=== PATIENT | male | born 1955 | race Caucasian/White ===

== ENCOUNTER 2018-04-18 15:43 | Outpatient (REF) | payer OTHER, SELFPAY ==
[2018-04-18 19:07] LABS: Bilirubin Negative (Negative); Blood Trace-intact (Negative); Clarity Clear; Glucose Negative (Negative); Ketones Negative (Negative); Leukocyte Esterase Negative (Negative); Nitrite Negative (Negative); Specific Gravity 1.025 (1.005-1.025); Urobilinogen 0.2 EU/dL (Up TO 0.2); pH 5.5 (5-8)
[2018-04-18 19:27] LABS: Bacteria Rare HPF (Negative); C & S Indicated? No; Casts Negative LPF (Negative); Crystals Negative HPF (Negative); Epithelial Cells Negative HPF (Negative); Mucus Negative (Negative); Other Cells Negative (Negative); RBC 0-2 (0-2); WBC Negative HPF (0-5)
== END 2018-04-18 16:03 ==
LOC: LBN 15:43
PROVIDERS: PCP Emergency Medicine; Visit Provider Emergency Medicine
DX: R31.9 Hematuria, unspecified (principal)
CPT/HCPCS: 81003; 81015

== ENCOUNTER 2018-04-18 15:48 | Outpatient (CLI) | payer OTHER, SELFPAY ==
--- NOTE | 2018-04-18 15:30 | DI.RAD_ITS ---
SYMPTOMS/DIAGNOSIS: SHORTNESS OF BREATH, R06.02 PA AND LATERAL CHEST: The heart is normal in size. The lungs are clear. The mediastinal structures and pleura appear intact. CONCLUSION: Normal chest.
== END 2018-04-18 16:08 ==
PROVIDERS: PCP Emergency Medicine; Visit Provider Emergency Medicine
DX: R06.02 Shortness of breath (principal)
CPT/HCPCS: 71046

== ENCOUNTER 2018-05-26 09:23 | Outpatient (CLI) | payer OTHER, SELFPAY ==
[2018-05-26 11:50] LABS: D-Dimer 235 ng/mlFEU (<500)
[2018-05-26 12:01] LABS: Abs Immature Grans 0.01 k/cumm (0.0-0.09); Absolute Basophil Count 0.02 k/cumm (0.0-0.2); Absolute Lymphocyte Count 1.77 k/cumm (1.2-3.4); Absolute Monocyte Count 0.63 k/cumm (0.11-0.7); Absolute Neutrophil Count 3.99 k/cumm (1.2-6.7); Basophils % 0.3; Eosinophils % 1.5; HCT 48.1 % (40.0-50.0); Immature Grans % 0.2; Lymphocytes % 27.1; Mean Corp. HGB Concentration 33.3 g/dL (32.0-36.0); Mean Corpuscular Hemoglobin 30.1 pg (27.0-33.0); Mean Corpuscular Volume 90.4 fL (80-95); Mean Platelet Volume 9.6 fL (8.0-11.0); Monocytes % 9.7; Neutrophils % 61.2; Platelet Count 329 x1000/uL (130-400); RBC 5.32 m/cumm (4.50-6.00); RBC Distribution Width 12.1 % (11.8-14.1); White Blood Cell Count 6.52 k/cumm (4.4-10.8)
[2018-05-26 12:44] LABS: ESR 25 MM/HR (1-20)
[2018-05-26 13:04] LABS: Cholesterol 289 mg/dL (50-200); HDL Cholesterol 46 mg/dL (40-60); LDL CHOLESTEROL 210 mg/dL (<100); Triglyceride 162 mg/dL (30-150)
== END 2018-05-26 09:43 ==
PROVIDERS: PCP Emergency Medicine; Visit Provider Emergency Medicine
DX: Z00.00 Encounter for general adult medical examination without abnormal findings (principal); R05 Cough; Z13.220 Encounter for screening for lipoid disorders
CPT/HCPCS: 36415; 80061; 83721; 85652; 85025; 85379; 86140

== ENCOUNTER 2018-07-11 02:08 | Outpatient (CLI) | payer OTHER, SELFPAY ==
[2018-07-11 11:05] LABS: HCT 43.2 % (40.0-50.0); HGB 14.3 g/dL (13.5-17.5); Mean Corp. HGB Concentration 33.1 g/dL (32.0-36.0); Mean Corpuscular Hemoglobin 29.9 pg (27.0-33.0); Mean Corpuscular Volume 90.2 fL (80-95); Mean Platelet Volume 9.8 fL (8.0-11.0); Platelet Count 325 x1000/uL (130-400); RBC 4.79 m/cumm (4.50-6.00); White Blood Cell Count 6.36 k/cumm (4.4-10.8)
[2018-07-11 11:16] LABS: ALT 29 U/L (12-78); AST 18 U/L (15-37); Alkaline Phosphatase 88 U/L (46-116); Anion Gap 10.6 mmol/L (3-11); BUN 25 mg/dL (7-18); Bilirubin, Total 0.4 mg/dL (0.2-1.0); C-Reactive Protein 0.16 mg/dL (0.0-0.3); CO2 26.4 mmol/L (21.0-32.0); CREATININE 1.16 mg/dL (0.70-1.30); Calcium 9.1 mg/dL (8.5-10.1); Chloride 100 mmol/L (98-107); Glucose 105 mg/dL (70-100); Sodium 137 mmol/L (136-145)
[2018-07-11 12:22] LABS: ESR 18 MM/HR (1-20)
[2018-07-12 13:24] LABS: Lyme Ab w Rflx to Lyme Confirm Negative
== END 2018-07-11 02:28 ==
PROVIDERS: PCP Emergency Medicine; Visit Provider Emergency Medicine
DX: R06.02 Shortness of breath (principal); M25.50 Pain in unspecified joint
CPT/HCPCS: 36415; 80053; 85027; 85652; 86140; 86618

== ENCOUNTER 2018-07-15 02:56 | Outpatient (CLI) | payer OTHER, SELFPAY ==
--- NOTE | 2018-07-15 | PFT_ITS ---
PULMONARY FUNCTION TEST REPORT Patient - Nahun Quispe 57 DATE OF SERVICE July 15, 2018 REQUESTING PROVIDER Sandeep Cordoba D.O. INTERPRETATION OF STUDY Spirometry shows mild obstructive airways disease with no significant bronchodilator response. LUNG VOLUMES - Lung volumes show no evidence of restriction. DIFFUSION CAPACITY- Elevated. AIRWAY RESISTANCE Normal. IMPRESSION Mild obstructive airways disease with no significant bronchodilator response. This is associated with elevated diffusion capacity, this constellation of finding can be seen in asthma. If the diagnosis of asthma is in question proceeding with Methacholine challenge testing may prove to be useful. Marlyn Galindo M.D. Bianca DD 07/16/2018 DT - 07/16/2018
[2018-07-15] MEDS: Inhaler, Assist Device 1 EACH MC (08:57)
[2018-07-15] MEDS: Albuterol HFA 18 GM 200 PUFF INH IH (08:58)
== END 2018-07-15 03:16 ==
PROVIDERS: PCP Emergency Medicine; Visit Provider Emergency Medicine
DX: R06.02 Shortness of breath (principal); Z77.9 Other contact with and (suspected) exposures hazardous to health
CPT/HCPCS: 94060; 94150; 94726; 94729

== ENCOUNTER 2018-11-27 17:19 | Observation (INO) | payer OTHER, SELFPAY ==
[2018-11-27] VITALS (16 sets, daily range): BP systolic 115–146; BP diastolic 65–85; PULSE 79–102; RESP 12–26; TEMP 36.5–37; O2SAT 94–99
--- NOTE | 2018-11-27 17:31 | DI.RAD_ITS ---
EXAM: XR CHEST 2V PA LATERAL INDICATION: fall, pain right ribs. COMPARISON: XR CHEST 2V PA LATERAL from 04/18/2018 TECHNIQUE: 2D digital imaging was performed. FINDINGS: The lungs are well expanded and free of infiltrate. There is no evidence of a pleural effusion. The cardiovascular structures appear intact. Compared with the previous images again noted is a small (2 mm) radiodensity in the left anterior chest.
--- NOTE | 2018-11-27 17:31 | DI.CT_ITS ---
EXAM: CT HEAD WO CLINICAL HISTORY: seizure activity. TECHNIQUE: A noncontrast cranial CT was performed according to the usual protocol. COMPARISON: No exams were available for comparison FINDINGS: There is no evidence of an intra or extra-axial hemorrhage. Age-appropriate atrophic changes are demo nstrated. There is evidence of small-vessel disease. The pearce-white matter differentiation is well m aintained. There is no evidence of a territorial infarct. The ventricles are unremarkable. There is no skull fracture. The paranasal sinuses are well maintained. There is no evidence of a mastoid effu aarti. Note is made of a 3 x 0.5 cm fatty density on the right frontal scalp which would be consisten t with a lipoma. IMPRESSION: No acute intracranial abnormality is demonstrated.
--- NOTE | 2018-11-27 17:33 | ED.GENADUL_ITS ---
Discharge Plan Disposition Patient Disposition: [facility] INPATIENT Condition: Serious Discharge Details Chief Complaint: Dizzy/Sync Clinical Impression: CHRISTIN (acute kidney injury), Syncope, Observed seizure-like activity Admit Date/Time: 11/27/18 19:51 Admit Provider: Danny Chavez Attending Provider: Danny Chavez Primary Care Provider: Ebony Celis ED Provider: Connor Linares Medical Decision Making Medical Records Medical records narrative: 17:35 --63-year-old male with history of hypertension here after syncopal episode that occurred just after standing having just smoked marijuana and worked all day without maintaining adequate hydration. He did have seizure-like activity during the episode. Patient has dry mucous membranes and is thirsty. I suspect he is dehydrated. Likely orthostatic episode. Consider seizure versus arrhythmia. I will give IV fluid bolus. ECG was reviewed and interpreted by me: Sinus rhythm 88 bpm, normal axis, no STEMI, nondiagnostic. --CT head was interpreted by radiology: No acute intracranial process. 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 No underlying bony abnormalities. Chest x-ray was reviewed and interpreted by radiology: No acute thoracic process. 2 mm radiodense foreign body in the left anterior upper chest soft tissues, unchanged compared to prior chest x-ray. Labs were reviewed and patient has significant elevation of creatinine from prior baseline. Suspect prerenal as a result of hypovolemia. Patient has received 2 L of crystalloid. Plan to hospitalize for overnight for IV fluids and observation on monitor with plan for repeat labs. I called and spoke with Dr. Gipson, on-call hospitalist, who will admit the patient. He request bridging orders be placed to the floor. HPI General Mode of arrival: EMS . Date/Time Provider Initiated Documentation: 11/27/18 17:20 . Limitations to Documentation: no limitations . Information obtained by: patient and EMS . HPI Narrative: 63-year-old male with history of hypertension, presents after syncopal episode. Patient notes he was working hard today outside, did not consume much water, was resting and smoking marijuana and when he stood up he suddenly felt dizzy and lost consciousness. Symptoms were severe. Now resolved. He was assisted by a friend and some to the ground. He did have some full body shaking, seizure-like activity for 30 seconds. He did not strike his head. He denies headache. No chest pain or shortness of breath. Currently his only complaint is that he feels dehydrated. Patient notes he has had at least 2 similar episodes in the past. Last episode occurred 1 to 2 years ago. He did not seek medical care for these prior episodes. Related Data Home Medications Medication Instructions Recorded Confirmed losartan 50 mg-hydrochlorothiazide 1 tab PO DAILY #90 tab 07/09/18 11/27/18 12.5 mg tablet rosuvastatin 10 mg tablet 10 mg PO DAILY #90 tab 07/09/18 11/27/18 budesonide-formoterol HFA 80 2 puff IH BID #10.2 gm 09/10/18 11/27/18 mcg-4.5 mcg/actuation aerosol inhaler Previous Rx's Medication Instructions Recorded losartan 50 mg-hydrochlorothiazide 1 tab PO DAILY #90 tab 07/09/18 12.5 mg tablet rosuvastatin 10 mg tablet 10 mg PO DAILY #90 tab 07/09/18 budesonide-formoterol HFA 80 2 puff IH BID #10.2 gm 09/10/18 mcg-4.5 mcg/actuation aerosol inhaler Allergies Allergy/AdvReac Type Severity Reaction Status Date / Time No Known Allergies Allergy Verified 11/27/18 17:27 General Stated Complaint: Dizzy/Sync ALFONZO: 2 Review of Systems Review of Systems ROS Unobtainable: All systems reviewed & are unremarkable except as noted in HPI and below Constitutional Constitutional: Denies fever(s) Cardiovascular Cardiovascular: Denies chest pain and Reports syncope Neurologic Neurologic: Reports syncope [facility] Medical History Depression HTN (hypertension) Restless leg syndrome Surgical History Colonoscopy - IV Sedation (10/19/16) Family History Mother No problems noted. Father No problems noted. Sister No problems noted. Sister No problems noted. Sister No problems noted. Sister No problems noted. Brother No problems noted. Brother No problems noted. Brother No problems noted. Brother No problems noted. Brother No problems noted. Son No problems noted. Son No problems noted. Daughter No problems noted. Daughter No problems noted. Social History Smoking/Tobacco Use Status: Never Alcohol Intake: former Drug use: Occasionally Substance use type: marijuana Details: quit drinking 31 yrs ago Do you feel safe at home: Yes Do you feel safe in your relationship?: Yes Exam Const General: cooperative and no acute distress HENMT Head: normocephalic and atraumatic Mouth: moist mucous membranes Eyes Conjunctivae: normal conjunctivae Sclera: normal sclerae EOM: EOM intact bilaterally Neck Neck: trachea midline and supple Resp Auscultation: clear to auscultation bilaterally, no rales, no rhonchi and no wheezes Cardio Jugular venous pressure: no JVD Rate: regular rate and not tachycardic Rhythm: regular rhythm GI Palpation: soft, not firm, no guarding, no masses, not rigid and nontender Skin General skin exam: no rashes or lesions noted Neuro General: alert, awake, oriented x3 and tone normal Cranial Nerves: CN's II-XI intact bilaterally Cognition: normal cognition Speech: speech normal Motor: muscle tone normal throughout and strength 5/5 throughout Sensory Exam: no sensory deficits noted Extrem General: no edema Psych Appearance: grossly normal Mental Status: mental status grossly normal Speech and Movement: speech and movement normal Course Vital Signs Vital signs: Vital Signs Temperature 36.5 C 11/27/18 17:20 Pulse 93 H 11/27/18 17:20 Respiratory Rate 16 11/27/18 17:20 Blood Pressure 119/85 11/27/18 17:20 Pulse Oximetry 94 L 11/27/18 17:20 Temperature 36.5 C 11/27/18 17:20 Temperature Source Temporal Artery Scan 11/27/18 17:20 Pulse 93 H 11/27/18 17:20 Respiratory Rate 16 11/27/18 17:20 Blood Pressure 119/85 11/27/18 17:20 Blood Pressure Position Supine 11/27/18 17:20 Pulse Oximetry 94 L 11/27/18 17:20 Oxygen Delivery Method Room Air 11/27/18 17:20 Oxygen Flow Rate 0 11/27/18 17:20 Comment 11/27/18 17:20
[2018-11-27] MEDS: Normal Saline 1,000 ML 1000 ML IV (17:41)
[2018-11-27 17:52] LABS: Abs Immature Grans 0.02 k/cumm (0.0-0.09); Absolute Basophil Count 0.03 k/cumm (0.0-0.2); Absolute Eosinophil Count 0.13 k/cumm (0.0-0.7); Absolute Lymphocyte Count 2.02 k/cumm (1.2-3.4); Absolute Neutrophil Count 7.15 k/cumm (1.2-6.7); Basophils % 0.3; Eosinophils % 1.3; HCT 36.9 % (40.0-50.0); HGB 12.3 g/dL (13.5-17.5); Immature Grans % 0.2; Lymphocytes % 19.7; Mean Corp. HGB Concentration 33.3 g/dL (32.0-36.0); Mean Corpuscular Hemoglobin 30.5 pg (27.0-33.0); Mean Corpuscular Volume 91.6 fL (80-95); Mean Platelet Volume 9.5 fL (8.0-11.0); Monocytes % 8.8; Neutrophils % 69.7; Platelet Count 317 x1000/uL (130-400); RBC 4.03 m/cumm (4.50-6.00); RBC Distribution Width 12.2 % (11.8-14.1); White Blood Cell Count 10.25 k/cumm (4.4-10.8)
[2018-11-27 18:03] LABS: ALT 58 U/L (16-63); AST 39 U/L (15-37); Alkaline Phosphatase 68 U/L (46-116); Anion Gap 9.8 mmol/L (3-11); BUN 32 mg/dL (7-18); Bilirubin, Total 0.6 mg/dL (0.2-1.0); CO2 25.2 mmol/L (21.0-32.0); Calcium 8.7 mg/dL (8.5-10.1); Chloride 108 mmol/L (98-107); Glucose 100 mg/dL (70-100); Magnesium 1.8 mg/dL (1.8-2.4); Potassium 4.1 mmol/L (3.5-5.1); Sodium 143 mmol/L (136-145)
--- NOTE | 2018-11-27 18:19 | DI.VRAD_ITS ---
PROCEDURE INFORMATION: Exam: XR Chest, 2 Views Exam date and time: 11/27/2018 5:33 PM Clinical history: 63 years old, male; Other: Syncope TECHNIQUE: Imaging protocol: XR of the chest Views: 2 views. COMPARISON: CR XR CHEST 2V PA LATERAL 04/18/2018 3:33 PM FINDINGS: Lungs: Normal pulmonary expansion. Pulmonary vasculature grossly normal. No infiltrates. Pleural space: No pleural effusion. No pneumothorax. Heart/Mediastinum: Heart size normal. No tracheal/mediastinal shift. Vasculature: Mild aortic ectasia and tortuosity. Bones/joints: No acute osseous abnormalities are identified. Soft tissues: 2 mm radiodense foreign body in the anterior upper left chest soft tissues, unchanged from 04/18/2018. IMPRESSION: 1. No acute thoracic process. 2. 2 mm radiodense foreign body in the left anterior upper chest soft tissues, unchanged. Dictated and Authenticated by: Logan Pugh MD. Ordering:SERA Ryan MD
--- NOTE | 2018-11-27 18:22 | DI.VRAD_ITS ---
PROCEDURE INFORMATION: Exam: CT Head Without Contrast Exam date and time: 11/27/2018 5:33 PM Clinical history: 63 years old, male; Syncope and collapse TECHNIQUE: Imaging protocol: Computed tomography of the head without contrast. COMPARISON: No relevant prior studies available. FINDINGS: Brain: Mild generalized atrophy with minimal periventricular white matter ischemic changes consistent with the patient's advanced age. No extra-axial fluid collections. No evidence of acute intracranial hemorrhage. Prasad-white differentiation is well maintained. No evidence of acute or subacute intracranial ischemia/infarct. No intracranial mass lesions. Midline shift: No midline shift or herniation. Ventricles: Ventricles normal. Bones/joints: The calvarium and visualized facial bones are intact. Sinuses: Visualized paranasal sinuses are clear. Mastoid air cells: Visualized mastoid air cells are clear. Orbits: Orbital contents demonstrate no evidence of acute abnormality. Soft tissues: 3 x 0.5 centimeter fat density lesion along the right frontal scalp on series 2 image 33 consistent with lipoma, measuring -91 Hounsfield units average density. No underlying bony abnormality. Vasculature: Mild atherosclerotic calcific plaque is identified in the visualized distal ICA segments . No asymmetric vascular hyperdensities are identified. Other findings: The IACs are grossly normal. The sella is grossly normal. IMPRESSION: 1. No acute intracranial process. 2. 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 No underlying bony abnormalities. Dictated and Authenticated by: Logan Pugh MD. Ordering:SERA Ryan MD
[2018-11-27 19:10] LABS: Troponin I < 0.05 ng/mL (0.00-0.06)
[2018-11-27] MEDS: Lactated Ringers 1,000 ML 1000 ML IV (19:37)
--- NOTE | 2018-11-27 20:53 | W.PM.HP.N ---
Date of service: 11/27/18 Time of Service: 20:53 Assessment and Plan Assessment and plan (1) Syncope: Status: Chronic Assessment and plan: monitor overnight on telemetry to r/o arrhythmia as a cause for his syncope although I think more likely he was just dehydrated and hypotensive/orthostatic. Will also continue to cycle his troponin levels to r/o ACS although no antecedent CP and normal EKG. CT of head was negative for CVA/tumor. Also will check EEG to r/o primary seizure disorder although I think the seizure was more likely a result of his orthostasis and hypotension associated w/ dehydration. Qualifiers: Syncope type: unspecified Qualified Code(s): R55 - Syncope and collapse (2) Acute kidney injury (nontraumatic): Status: Acute Assessment and plan: continue iv fluid hydration overnight and repeat his BMP in the a.m. Will also obtain UA (3) Dehydration: Status: Acute Assessment and plan: cont. iv fluid hydration and monitor urine output and repeat BMP in the a.m. (4) Seizure: Status: Acute Assessment and plan: monitor for any further seizures, proceed w/ EEG in the a.m. Will obtain MRI to rule out any structural causes for seizure however I think this is all due to very low bp associated w/ dehydration (5) Anemia: Status: Chronic Assessment and plan: hemoglobin and hematocrit are slightly low which in the setting of dehydration and prerenal azotemia is unusual. He denies any hx of PUD nor any symptoms of melena nor hematochezia nor abdominal pains. I will repeat his CBC in the a.m. along w/ iron studies and also check his stool for occult blood. If he is indeed anemic and this is not a false reading i.e. drawn labs from above an iv site; then this would explain syncope in setting of dehydration and anemia. 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 He had just gotten done on a roof and was having a drink of water and a smoke of marijiuana when he felt lightheaded and before he could sit down he passed out. Over a 20 minute period he reportedly passed out 3 more times before EMS arrived. His syncope was accompanied by seizure like activity of full body jerking according to his coworkers who reported this to EMS. The patient states that this has happened one other time about 2 yrs ago again associated w/ working in the heat and not drinking enough water on a job site. He denies any seizures or syncope in between. He denies any headaches nor dyspnea nor chest pains other than some right sided chest wall tenderness from hitting his truck on the way down to the ground when he passed out. Evaluation in the ER by Dr. Linares included CT of brain w/out contrast (negative), EKG (NSR w/out ischemia), troponin I level that was normal at <0.05, CMP demonstrating prerenal azotemia (BUN 32, creatinine 2.50; last levels were 25 and 1.16 in 07/11/2018), CBC that demonstrated a mild anemia (Hb 12.3 gm, HCT 36.9% with normal indices and RDW and normal WBC 10,250 and platelets of 317,000) urine toxicology screen that is pending. CXR that is negative for acute cardiopulmonary process. Treatment in the ER included 2 L of iv fluids (1 L of LR and 1 L of NS). He is now admitted for overnight iv fluid rehydration, monitoring for arrhythmias or further seizures and for repeat labs to assess return of his renal function. I have also scheduled inpatient EEG and echo for completion of his syncope and seizure workup. Review of Systems Review of Systems ROS Unobtainable: All systems reviewed & are unremarkable except as noted in HPI and below Constitutional Constitutional: Reports as per HPI, Denies chills and Denies fever(s) Eyes Eyes: Reports system reviewed and no additional complaints, except as docu Cardiovascular Cardiovascular: Reports chest pain (right sided chest wall pain since his syncope; no antecedent CP), Denies chest pain with activity, Reports syncope, Denies pedal edema, Denies leg edema, Reports lightheadedness, Denies palpitations and Denies dyspnea on exertion Respiratory Respiratory: Denies chest congestion and Denies dyspnea on exertion Gastrointestinal Gastrointestinal: Denies abdominal pain, Denies melena, Denies hematochezia, Denies diarrhea and Denies nausea Genitourinary Genitourinary: Reports system reviewed and no additional complaints, except as docu Musculoskeletal Musculoskeletal: Reports system reviewed and no additional complaints, except as docu Integumentary/Breasts Skin/Breast: Reports system reviewed and no additional complaints, except as docu Neurologic Neurologic: Reports syncope and Reports seizure-like activity Endocrine Endocrine: Reports system reviewed and no additional complaints, except as docu and Denies palpitations Hematologic/Lymphatic Hematologic/Lymphatic: Reports system reviewed and no additional complaints, except as docu Allergic/Immunologic Allergic/Immunologic: Reports system reviewed and no additional complaints, except as docu PFSH Medical History Depression HTN (hypertension) Restless leg syndrome Surgical History Colonoscopy - IV Sedation (10/19/16) Family History Mother No problems noted. Father No problems noted. Sister No problems noted. Sister No problems noted. Sister No problems noted. Sister No problems noted. Brother No problems noted. Brother No problems noted. Brother No problems noted. Brother No problems noted. Brother No problems noted. Son No problems noted. Son No problems noted. Daughter No problems noted. Daughter No problems noted. Social History Smoking/Tobacco Use Status: Never Alcohol Intake: former Drug use: Occasionally Substance use type: marijuana Details: quit drinking 31 yrs ago Do you feel safe at home: Yes Do you feel safe in your relationship?: Yes Meds Home Medications and Allergies Home Medications Medication Instructions Recorded Confirmed Type losartan 50 mg-hydrochlorothiazide 1 tab PO DAILY #90 tab 07/09/18 11/27/18 Rx 12.5 mg tablet rosuvastatin 10 mg tablet 10 mg PO DAILY #90 tab 07/09/18 11/27/18 Rx budesonide-formoterol HFA 80 2 puff IH BID #10.2 gm 09/10/18 11/27/18 Rx mcg-4.5 mcg/actuation aerosol inhaler Allergies Allergy/AdvReac Type Severity Reaction Status Date / Time No Known Allergies Allergy Verified 11/27/18 17:27 Exam Const General: cooperative, healthy appearing, comfortable and no acute distress Nutritional Appearance: overweight Orientation: alert, awake and oriented x3 Chest Chest: normal inspection of the chest and localized rib tenderness with anteroposterior compression right anterior-axillary line Resp Effort & Inspection: normal respiratory effort and able to speak in complete sentences Auscultation: clear to auscultation bilaterally Cardio Jugular venous pressure: no JVD Palpation: normal PMI Rate: regular rate Rhythm: regular rhythm Heart Sounds: S1 normal, S2 normal and normal, physiologic split S2 Pulses: normal peripheral pulses GI Inspection: normal to inspection and obesity Palpation: soft and no hepatosplenomegaly Percussion: normal to percussion Auscultation: normal bowel sounds Rectal Exam: deferred Back/Spine/Pelvis Back: no CVA tenderness Cervical Spine: normal cervical lordosis Thoracic/Lumbar Spine: thoracic and lumbar spine normal to inspection Skin General skin exam: no rashes or lesions noted Neuro General: alert, awake, oriented x3, moves all extremities and no focal motor deficits Extrem General: normal to inspection, full ROM, normal capillary refill, no joint enlargement, no clubbing, cyanosis or edema, no pedal edema and no calf tenderness Psych Appearance: grossly normal Mental Status: mental status grossly normal Speech and Movement: speech and movement normal Mood: congruent mood Affect: normal affect Attitude: cooperative Thought Process: normal Thought Content: normal Insight: insight good Judgment: judgment good Results Imaging Chest x-ray: report reviewed Imaging Studies: PROCEDURE INFORMATION: Exam: CT Head Without Contrast Exam date and time: 11/27/2018 5:33 PM Clinical history: 63 years old, male; Syncope and collapse TECHNIQUE: Imaging protocol: Computed tomography of the head without contrast. COMPARISON: No relevant prior studies available. FINDINGS: Brain: Mild generalized atrophy with minimal periventricular white matter ischemic changes consistent with the patient's advanced age. No extra-axial fluid collections. No evidence of acute intracranial hemorrhage. Prasad-white differentiation is well maintained. No evidence of acute or subacute intracranial ischemia/infarct. No intracranial mass lesions. Midline shift: No midline shift or herniation. Ventricles: Ventricles normal. Bones/joints: The calvarium and visualized facial bones are intact. Sinuses: Visualized paranasal sinuses are clear. Mastoid air cells: Visualized mastoid air cells are clear. Orbits: Orbital contents demonstrate no evidence of acute abnormality. Soft tissues: 3 x 0.5 centimeter fat density lesion along the right frontal scalp on series 2 image 33 consistent with lipoma, measuring -91 Hounsfield units average density. No underlying bony abnormality. Vasculature: Mild atherosclerotic calcific plaque is identified in the visualized distal ICA segments . No asymmetric vascular hyperdensities are identified. Other findings: The IACs are grossly normal. The sella is grossly normal. IMPRESSION: 1. No acute intracranial process. 2. 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 No underlying bony abnormalities. Dictated and Authenticated by: Logan Pugh MD. Labs Result diagrams: 11/28/18 07:15 11/28/18 07:15 Labs: Laboratory Results - last 24 hr 11/27/18 11/27/18 11/27/18 17:25 17:25 18:48 WBC 10.25 RBC 4.03 L Hgb 12.3 L Hct 36.9 L MCV 91.6 MCH 30.5 MCHC 33.3 RDW 12.2 Plt Count 317 MPV 9.5 Immature Gran % 0.2 Neutrophils % 69.7 Lymphocytes % 19.7 Monocytes % 8.8 Eosinophils % 1.3 Basophils % 0.3 Absolute Neutrophils 7.15 H Absolute Lymphocytes 2.02 Absolute Monocytes 0.90 H Absolute Eosinophils 0.13 Absolute Basophils 0.03 Sodium 143 Potassium 4.1 Chloride 108 H Carbon Dioxide 25.2 Anion Gap 9.8 BUN 32 H Creatinine 2.50 H Estimated GFR/1.73 m2 26.30 Glucose 100 Calcium 8.7 Magnesium 1.8 Total Bilirubin 0.6 AST 39 H ALT 58 Alkaline Phosphatase 68 Troponin I < 0.05 Total Protein 7.0 Albumin 4.0 Last Vital Signs Temp 37.0 C 11/27/18 18:25 Pulse 91 H 11/27/18 18:46 Resp 12 11/27/18 18:46 BP 128/77 11/27/18 18:46 Pulse Ox 97 11/27/18 18:46
[2018-11-27] MEDS: Normal Saline 1,000 ML 150 ML IV (21:11)
[2018-11-27] MEDS: Normal Saline Flush 10 ML SYR IVP (21:16)
[2018-11-27] MEDS: Enoxaparin 30 MG/0.3 ML SYR SC (21:45)
[2018-11-27 22:07] LABS: *AMPHETAMINES SCREEN URINE Negative (Negative); *BARBITURATES SCREEN URINE Negative (Negative); *BENZODIAZEPINES SCREEN URINE Negative (Negative); Cannabinoids THC POSITIVE (Negative); Cocaine Screen,Urine Negative (Negative); METHADONE URINE SCREEN Negative (Negative); OPIATES URINE SCREEN Negative (Negative)
[2018-11-27 22:08] LABS: Tricyclic Antidepressants Negative (Negative)
[2018-11-27 22:35] LABS: Troponin I < 0.05 ng/mL (0.00-0.06)
[2018-11-28] VITALS (9 sets, daily range): BP systolic 108–138; BP diastolic 64–82; PULSE 58–75; RESP 16–18; TEMP 35.7–37; O2SAT 95–98
[2018-11-28] MEDS: Normal Saline 1,000 ML 150 ML IV ×3 (04:04→20:15)
[2018-11-28 07:24] LABS: Abs Immature Grans 0.01 k/cumm (0.0-0.09); Absolute Basophil Count 0.02 k/cumm (0.0-0.2); Absolute Eosinophil Count 0.13 k/cumm (0.0-0.7); Absolute Lymphocyte Count 1.27 k/cumm (1.2-3.4); Absolute Monocyte Count 0.61 k/cumm (0.11-0.7); Absolute Neutrophil Count 4.12 k/cumm (1.2-6.7); Basophils % 0.3; Eosinophils % 2.1; HCT 35.5 % (40.0-50.0); HGB 11.8 g/dL (13.5-17.5); Immature Grans % 0.2; Lymphocytes % 20.6; Mean Corp. HGB Concentration 33.2 g/dL (32.0-36.0); Mean Corpuscular Hemoglobin 30.6 pg (27.0-33.0); Mean Platelet Volume 9.3 fL (8.0-11.0); Monocytes % 9.9; Neutrophils % 66.9; Platelet Count 221 x1000/uL (130-400); RBC 3.86 m/cumm (4.50-6.00); RBC Distribution Width 12.2 % (11.8-14.1); White Blood Cell Count 6.16 k/cumm (4.4-10.8)
[2018-11-28 08:03] LABS: BUN 25 mg/dL (7-18); CREATININE 1.44 mg/dL (0.70-1.30); Calcium 8.2 mg/dL (8.5-10.1); Chloride 109 mmol/L (98-107); Estimated GFR 49.71 (mL/min/1.73m2); Ferritin 318 ng/mL (8-388); Folate 9.1 ng/mL (8.6-20.0); Glucose 93 mg/dL (70-100); Potassium 3.6 mmol/L (3.5-5.1); Sodium 142 mmol/L (136-145); Vitamin B12 244 pg/mL (193-986)
[2018-11-28 08:07] LABS: Troponin I < 0.05 ng/mL (0.00-0.06)
[2018-11-28 08:30] LABS: Iron 45 ug/dL (50-175); Total Iron Binding Capacity 230 ug/dL (250-450); Transferrin Sat 20 % (20-55)
[2018-11-28] MEDS: Budesonide/Formoterol 80/4.5 6.9 GM 60 PUFF INH IH ×2 (09:54→20:18)
--- NOTE | 2018-11-28 13:20 | DI.MRI_ITS ---
EXAM: MR BRAIN WO CLINICAL HISTORY: syncope, seizure. TECHNIQUE: Multiplanar multisequence MRI was performed. COMPARISON: No exams were available for comparison FINDINGS: MR examination of the brain was performed according to the usual protocol with additional coronal T2 weighted imaging. There is mild generalized cerebral atrophy. No signal abnormality identified in t he brain. The orbital and temporal bone structures appear intact. There is normal flow void in the [place] vasculature. The pituitary appears intact. No abnormal signal identified in the te mporal/hippocampal region. Diffusion weighted imaging shows no evidence of infarction. Susceptibili ty weighted imaging shows no evidence of intracranial hemorrhage. IMPRESSION: Negative brain MRI
[2018-11-28 13:56] LABS: Bilirubin Negative (Negative); Blood Negative (Negative); Clarity Clear (Clear); Glucose Negative (Negative); Ketones Negative (Negative); Leukocyte Esterase Negative (Negative); Nitrite Negative (Negative); Specific Gravity 1.015 (1.005-1.025); Urobilinogen 0.2 EU/dL (Up TO 0.2)
--- NOTE | 2018-11-28 14:56 | CHAPLAIN ---
Nahun was resting in bed and has a visitor with him. I introduced myself, explained my role and offered support. Nahun was friendly and greeted me pleasantly but did not seem interested in further conversation.
--- NOTE | 2018-11-28 15:33 | W.PM.PROGNOT ---
Date of Service Date of service: 11/28/18 Time of Service: 15:34 Assessment and Plan Assessment and plan (1) Syncope: Start date: 11/28/18 Start time: 15:43 Status: Chronic Assessment and plan: Unlikely seizure due to length in history. Last episode was 2 years ago. Consider dehydration source of syncope in working male on hydroclorithiazide not drinking water causing CHRISTIN. With carotid stenosis of 50%. Troponin levels negative. EKG normal. Will have event monitor on Discharge to r/o abnormal rythm. Qualifiers: Syncope type: unspecified Qualified Code(s): R55 - Syncope and collapse (2) Acute kidney injury (nontraumatic): Start date: 11/28/18 Start time: 15:47 Status: Acute Assessment and plan: Improved significantly. Will continue hydration overnight and recheck bmp in am. (3) Dehydration: Start date: 11/28/18 Start time: 15:48 Status: Acute Assessment and plan: Improved cont. iv fluid hydration (4) Seizure: Start date: 11/28/18 Start time: 15:48 Status: Acute Assessment and plan: Unlikely. Spoke with neurology no event in over a year will not need antiepileptics. His last event was 2 years ago at the end of a work day. (5) Anemia: Start date: 11/28/18 Start time: 15:49 Status: Chronic Assessment and plan: Iron low at 45, TIBC low at 230 B12 normal and Folate 9.1, H/H stable but low 11.8/35.5 Discussed above findings with Dr. Zamudio who is in agreement. Qualifiers: Anemia type: unspecified type Qualified Code(s): D64.9 - Anemia, unspecified Subjective Subjective Patient reports: no new complaints Interval history since last seen: Last episode of syncope 2 years ago. EEG done and results pending. MRI done results pending. Will continue hydration over night to normalize kidney function. Spoke to patient about changing ARB and hydroclorithiazide to calcium channel reinaldo. He is refusing to change medications, they work for his blood pressure and if he has to change medications he would like his PCP to change them. Spoke about medication affects on kidneys, monitor I/O, labs, electrolytes. Exam Const General: cooperative, healthy appearing, comfortable and no acute distress Nutritional Appearance: overweight Orientation: alert, awake and oriented x3 Chest Chest: normal inspection of the chest and localized rib tenderness with anteroposterior compression Resp Effort & Inspection: normal respiratory effort and able to speak in complete sentences Auscultation: clear to auscultation bilaterally Cardio Jugular venous pressure: no JVD Palpation: normal PMI Rate: regular rate Rhythm: regular rhythm Heart Sounds: S1 normal, S2 normal and normal, physiologic split S2 Pulses: normal peripheral pulses GI Inspection: normal to inspection and obesity Palpation: soft and no hepatosplenomegaly Percussion: normal to percussion Auscultation: normal bowel sounds Rectal Exam: deferred Back/Spine/Pelvis Back: no CVA tenderness Cervical Spine: normal cervical lordosis Thoracic/Lumbar Spine: thoracic and lumbar spine normal to inspection Skin General skin exam: no rashes or lesions noted Neuro General: alert, awake, oriented x3, moves all extremities and no focal motor deficits Extrem General: normal to inspection, full ROM, normal capillary refill, no joint enlargement, no clubbing, cyanosis or edema, no pedal edema and no calf tenderness Psych Appearance: grossly normal Mental Status: mental status grossly normal Speech and Movement: speech and movement normal Mood: congruent mood Affect: normal affect Attitude: cooperative Thought Process: normal Thought Content: normal Insight: insight good Judgment: judgment good Objective Objective Clinical Data: Abnormal lab results 11/27/18 11/27/18 11/27/18 Range/Units 17:25 17:25 21:20 RBC 4.03 L (4.50-6.00) m/cumm Hgb 12.3 L (13.5-17.5) g/dL Hct 36.9 L (40.0-50.0) % Absolute Neutrophils 7.15 H (1.2-6.7) k/cumm Absolute Monocytes 0.90 H (0.11-0.7) k/cumm Chloride 108 H (98-107) mmol/L BUN 32 H (7-18) mg/dL Creatinine 2.50 H (0.70-1.30) mg/dL Calcium (8.5-10.1) mg/dL Iron (50-175) ug/dL TIBC (250-450) ug/dL AST 39 H (15-37) U/L Ur THC Screen Positive A (Negative) 11/28/18 11/28/18 11/28/18 Range/Units 07:15 07:15 07:15 RBC 3.86 L (4.50-6.00) m/cumm Hgb 11.8 L (13.5-17.5) g/dL Hct 35.5 L (40.0-50.0) % Absolute Neutrophils (1.2-6.7) k/cumm Absolute Monocytes (0.11-0.7) k/cumm Chloride 109 H (98-107) mmol/L BUN 25 H (7-18) mg/dL Creatinine 1.44 H D (0.70-1.30) mg/dL Calcium 8.2 L (8.5-10.1) mg/dL Iron 45 L (50-175) ug/dL TIBC 230 L (250-450) ug/dL AST (15-37) U/L Ur THC Screen (Negative) Vital Signs Temperature 36.2 C L 11/28/18 12:08 Temperature Source Temporal Artery Scan 11/28/18 12:08 Pulse 69 11/28/18 12:08 Pulse Rhythm Regular 11/28/18 03:30 Pulse 91 H 11/27/18 18:46 Respiratory Rate 16 11/28/18 12:08 Respiratory Effort Non-Labored 11/28/18 03:30 Respiratory Depth Normal 11/28/18 03:30 Respiratory Pattern Normal 11/28/18 03:30 Blood Pressure 126/78 11/28/18 12:08 Blood Pressure Mean 89 11/27/18 18:46 Blood Pressure Position Supine 11/27/18 17:20 Pulse Oximetry 96 11/28/18 12:08 Oxygen Delivery Method Room Air 11/28/18 12:08 Oxygen Flow Rate 0 11/28/18 12:08 Pain Level 0 11/28/18 12:08 Comment 11/27/18 17:20 Intake & Output 11/27/18 11/28/18 11/28/18 23:59 11:59 23:59 Intake Total 1100 / 1100 2332.5 / 2332.5 Output Total 800 / 800 1500 / 2100 600 / 2100 Balance 300 / 300 832.5 / 232.5 -600 / 232.5 Weight 85.4 kg 88 kg Intake: IV 1100 / 1100 1932.5 / 1932.5 Oral 400 / 400 Output: Urine 800 / 800 1500 / 2100 600 / 2100 Other: Urine Color Yellow Pale Yellow Straw Urine Appearance Clear Clear Clear Urine Odor Normal Normal Voiding Methods Toilet Toilet Laboratory Results WBC 6.16 k/cumm (4.4-10.8) D 11/28/18 07:15 RBC 3.86 m/cumm (4.50-6.00) L 11/28/18 07:15 Hgb 11.8 g/dL (13.5-17.5) L 11/28/18 07:15 Hct 35.5 % (40.0-50.0) L 11/28/18 07:15 MCV 92.0 fL (80-95) 11/28/18 07:15 MCH 30.6 pg (27.0-33.0) 11/28/18 07:15 MCHC 33.2 g/dL (32.0-36.0) 11/28/18 07:15 RDW 12.2 % (11.8-14.1) 11/28/18 07:15 Plt Count 221 x1000/uL (130-400) 11/28/18 07:15 MPV 9.3 fL (8.0-11.0) 11/28/18 07:15 Immature Gran % 0.2 11/28/18 07:15 Neutrophils % 66.9 11/28/18 07:15 Lymphocytes % 20.6 11/28/18 07:15 Monocytes % 9.9 11/28/18 07:15 Eosinophils % 2.1 11/28/18 07:15 Basophils % 0.3 11/28/18 07:15 Absolute Neutrophils 4.12 k/cumm (1.2-6.7) 11/28/18 07:15 Absolute Lymphocytes 1.27 k/cumm (1.2-3.4) 11/28/18 07:15 Absolute Monocytes 0.61 k/cumm (0.11-0.7) 11/28/18 07:15 Absolute Eosinophils 0.13 k/cumm (0.0-0.7) 11/28/18 07:15 Absolute Basophils 0.02 k/cumm (0.0-0.2) 11/28/18 07:15 Sodium 142 mmol/L (136-145) 11/28/18 07:15 Potassium 3.6 mmol/L (3.5-5.1) 11/28/18 07:15 Chloride 109 mmol/L (98-107) H 11/28/18 07:15 Carbon Dioxide 24.0 mmol/L (21.0-32.0) 11/28/18 07:15 Anion Gap 9.0 mmol/L (3-11) 11/28/18 07:15 BUN 25 mg/dL (7-18) H 11/28/18 07:15 Creatinine 1.44 mg/dL (0.70-1.30) H D 11/28/18 07:15 Estimated GFR/1.73 m2 49.71 (mL/min/1.73m2) 11/28/18 07:15 Glucose 93 mg/dL (70-100) 11/28/18 07:15 Calcium 8.2 mg/dL (8.5-10.1) L 11/28/18 07:15 Magnesium 1.8 mg/dL (1.8-2.4) 11/27/18 17:25 Iron 45 ug/dL (50-175) L 11/28/18 07:15 TIBC 230 ug/dL (250-450) L 11/28/18 07:15 Transferrin % Sat 20 % (20-55) 11/28/18 07:15 Ferritin 318 ng/mL (8-388) 11/28/18 07:15 Total Bilirubin 0.6 mg/dL (0.2-1.0) 11/27/18 17:25 AST 39 U/L (15-37) H 11/27/18 17:25 ALT 58 U/L (16-63) 11/27/18 17:25 Alkaline Phosphatase 68 U/L (46-116) 11/27/18 17:25 Troponin I < 0.05 ng/mL (0.00-0.06) 11/28/18 07:15 Total Protein 7.0 g/dL (6.4-8.2) 11/27/18 17:25 Albumin 4.0 g/dL (3.4-5.0) 11/27/18 17:25 Vitamin B12 244 pg/mL (193-986) 11/28/18 07:15 Folate 9.1 ng/mL (8.6-20.0) 11/28/18 07:15 Urine Color Yellow (Yellow) 11/28/18 13:35 Urine Clarity Clear (Clear) 11/28/18 13:35 Urine pH 6.0 (5-8) 11/28/18 13:35 Ur Specific Edna 1.015 (1.005-1.025) 11/28/18 13:35 Urine Protein Negative mg/dL (Negative) 11/28/18 13:35 Urine Ketones Negative mg/dL (Negative) 11/28/18 13:35 Urine Blood Negative (Negative) 11/28/18 13:35 Urine Nitrite Negative (Negative) 11/28/18 13:35 Urine Bilirubin Negative (Negative) 11/28/18 13:35 Urine Urobilinogen 0.2 EU/dL (Up TO 0.2) 11/28/18 13:35 Ur Leukocyte Esterase Negative (Negative) 11/28/18 13:35 Urine Glucose Negative mg/dL (Negative) 11/28/18 13:35 Urine Opiates Screen Negative (Negative) 11/27/18 21:20 Urine Methadone Screen Negative (Negative) 11/27/18 21:20 Ur Barbiturates Screen Negative (Negative) 11/27/18 21:20 Ur Tricyclics Screen Negative (Negative) 11/27/18 21:20 Ur Amphetamines Screen Negative (Negative) 11/27/18 21:20 U Benzodiazepines Scrn Negative (Negative) 11/27/18 21:20 Urine Cocaine Screen Negative (Negative) 11/27/18 21:20 Ur THC Screen Positive (Negative) A 11/27/18 21:20
--- NOTE | 2018-11-28 15:44 | PDOC.EEG ---
Neurology EEG EEG: [facility] Department of Neurology INPATIENT EEG REPORT Date of Recordin11/28/18 Interpreting Physician: Dr. Khushi Stark Reason for study: Mr. Quispe is a 63 year-old gentleman admitted s/p an episode of loss of consciousness with reported convulsive activity. Current Medications: Current Medications Acetaminophen (Tylenol) 0 mg PO Q4H PRN PRN Al Hydrox/Mg Hydrox/Simethicone (Mylanta Liquid) 30 ml PO Q2H PRN PRN Budesonide/Formoterol Fumarate (Symbicort 80/4.5 Mcg Inhaler) 0 puff IH BID [facility] Last Admin: 11/28/18 09:54 Dose: 1 puffs Documented by: Dimethicone/Zinc Oxide (Rossy Protect Cream) 0 gm TP PRN PRN Docusate Sodium (Colace) 100 mg PO TID PRN PRN Enoxaparin Sodium (Lovenox) 30 mg SC Q24H [facility] Last Admin: 11/27/18 21:45 Dose: 30 mg Documented by: Sodium Chloride (Saline 1000ml Bag) 1,000 mls @ 150 mls/hr IV INFUSION [facility] Last Admin: 11/28/18 10:17 Dose: 150 mls/hr Documented by: IV Miscellaneous Supplies () 1 each IV DIRECTED PILAR Magnesium Hydroxide (Milk Of Magnesia) 30 ml PO DAILY PRN PRN Polyethylene Glycol (Miralax) 17 gm PO DAILY PRN PRN PRN Reason: Constipation Sodium Chloride (Saline Flush 10 Ml Syringe) 0 ml IVP PRN PRN Last Admin: 11/27/18 21:16 Dose: 10 ml Documented by: METHODS: A 21 channel digitized electroencephalogram was performed in the [facility] Med/Surg Floor or ICU. The 10/20 international system of electrode placement was used and bipolar and referential electrode montages were recorded. In addition to EEG the patient was monitored for EKG and lateral/vertical eye movements. Activation procedures of photic stimulation and hyperventilation were performed if applicable. Video was used during activation procedures and during events where applicable. The duration of the recording was 30 minutes. DESCRIPTION OF EEG: The patient was noted to be drowsy and asleep during the recording. During maximal wakefulness an 8-Hz posterior background rhythm was present which was poorly-modulated, symmetrical, reactive to eye opening, and of moderate voltage - however, I am not sure that complete wakefulness was ever seen on the recording. With eye opening the background activity changed to a low voltage mixture of alpha, beta, and occasional theta range frequencies. Faster frequencies were present in the bilateral anterior head regions. There was a normal anterior-posterior voltage gradient. During drowsiness, there was attenuation of the posterior dominant background rhythm and vertex waves. Stage II sleep was present with symmetrical sleep spindles, K-complexes, and vertex waves. Activating Procedures: Photic stimulation was performed which produced a symmetrical posterior driving response at various flash frequencies. Hyperventilation was performed with poor effort and produced no physiological slowing of the background (he fell asleep during HV). EKG: EKG revealed normal sinus rhythm (bradycardia). INTERPRETATION: This EEG is normal during the drowsy and sleep states as well as during photic stimulation. Complete wakefulness was not seen and hyperventilation was not performed adequately. PRIOR EEG: none CLINICAL CORRELATION: No focal regions of cerebral dysfunction or epileptiform activity was present. Epilepsy remains a clinical diagnosis and a normal EEG does not rule out epilepsy. There was no sustained wakefulness recorded. This could be due to sleep deprivation or be secondary to an underlying sleep disorder. Clinical correlation is advised. Khushi Stark MD
--- NOTE | 2018-11-28 18:07 | PDOC.CMIN ---
- If Service Date Differs Date of service: 11/28/18 Time of Service: 18:07 Care Management Initial Assess REASON FOR HOSPITALIZATION:: Syncope, CHRISTIN PAST MEDICAL HISTORY/PAST SURGICAL HISTORY:: Medical History. Depression. HTN (hypertension). Restless leg syndrome. Surgical History. Colonoscopy - IV Sedation (10/19/16) PREVIOUS FUNCTIONAL STATUS/SOCIAL/FAMILY SUPPORTS:: Jim lives alone in [place]. His daughters Alma and Anny live close by and are very supportive. He works in construction and likes to stay busy. He is independent at baseline. CURRENT FUNCTIONAL STATUS:: Jim was lying in bed when CM met with him. He was frustrated as the provider advised he stay overnight for the results of his tests to be read and to make sure he is rehydrated. He reported that he would stay overnight, but that he wanted to go as early as possible in the morning. ADVANCE DIRECTIVES:: None on file. Has patient been provided with information about the portal?: No Did the patient sign up for the portal?: No CODE STATUS:: Full Code INSURANCE COVERAGE / FINANCIAL ISSUES:: [employer] CURRENT HOME/COMMUNITY SERVICES/EQUIPMENT:: No current services or equipment. PRIMARY CARE PHYSICIAN:: Sandeep Cordoba POTENTIAL DISCHARGE NEEDS:: Evaluations for further needs, follow up appoinments with PCP and neurology. PATIENT/FAMILY EDUCATION NEEDS:: Review of community based supports, discharge plan, discussion of self care needs including Ask Me Three ANTICIPATED BARRIERS TO DISCHARGE:: None identified at this time. TRANSPORTATION:: Jim's daughterAlma will transport him home via private vehicle PLAN:: Jim will return home when medically cleared with follow up appointments with PCP and Neurology. Anticipate no additional services. His daughter, Alma will transport him home via private vehicle.
[2018-11-28] MEDS: Enoxaparin 30 MG/0.3 ML SYR SC (21:47)
[2018-11-29] MEDS: Normal Saline 1,000 ML 150 ML IV ×2 (02:38→09:17)
[2018-11-29 03:45] VITALS: BP 132/78; PULSE 77; RESP 18; TEMP 37.1; O2SAT 98
[2018-11-29 07:09] VITALS: PULSE 78
[2018-11-29 07:15] VITALS: BP 144/81; PULSE 88; RESP 16; TEMP 37.1; O2SAT 99
[2018-11-29 07:29] LABS: Abs Immature Grans 0.01 k/cumm (0.0-0.09); Absolute Basophil Count 0.02 k/cumm (0.0-0.2); Absolute Lymphocyte Count 1.02 k/cumm (1.2-3.4); Absolute Monocyte Count 0.53 k/cumm (0.11-0.7); Absolute Neutrophil Count 3.56 k/cumm (1.2-6.7); Basophils % 0.4; Eosinophils % 1.9; HCT 36.1 % (40.0-50.0); HGB 11.9 g/dL (13.5-17.5); Immature Grans % 0.2; Lymphocytes % 19.5; Mean Corpuscular Hemoglobin 30.2 pg (27.0-33.0); Mean Corpuscular Volume 91.6 fL (80-95); Mean Platelet Volume 9.4 fL (8.0-11.0); Monocytes % 10.1; Neutrophils % 67.9; Platelet Count 235 x1000/uL (130-400); RBC 3.94 m/cumm (4.50-6.00); RBC Distribution Width 12.1 % (11.8-14.1); White Blood Cell Count 5.24 k/cumm (4.4-10.8)
[2018-11-29 07:41] LABS: Anion Gap 9.9 mmol/L (3-11); BUN 16 mg/dL (7-18); CO2 22.1 mmol/L (21.0-32.0); CREATININE 1.11 mg/dL (0.70-1.30); Calcium 7.7 mg/dL (8.5-10.1); Chloride 111 mmol/L (98-107); Glucose 91 mg/dL (70-100); Magnesium 1.8 mg/dL (1.8-2.4); Potassium 3.6 mmol/L (3.5-5.1); Sodium 143 mmol/L (136-145)
[2018-11-29] MEDS: Budesonide/Formoterol 80/4.5 6.9 GM 60 PUFF INH IH (08:01)
--- NOTE | 2018-11-29 09:47 | DSE_ITS ---
Date of service: 11/29/18 Time of Service: 09:47 DS: Diagnosis Discharge Diagnosis (1) Syncope: Start date: 11/29/18 Start time: 09:47 Status: Chronic Asessment and Plan: likely due to dehydration, however patient did sustain 6 beat run of V-Tach while asleep by telemetry, Will need outpatient Echo, cardiac event monitor, PCP follow up for this week. (2) Acute kidney injury (nontraumatic): Start date: 11/29/18 Start time: 09:58 Status: Acute Asessment and Plan: Currently on losartanl and HCTZ. With CHRISTIN can worsen function. Patient endorses not drinking water daily, just sprite, recommend changing medications for BP that are not as nephrotoxic. (3) Dehydration: Start date: 11/29/18 Start time: 09:59 Status: Acute Asessment and Plan: Resolved. In setting of HCTZ and working all day without hydration apparent by Creatinine and BUN after IVF has now normalized. (4) Seizure: Start date: 11/29/18 Start time: 10:05 Status: Acute Asessment and Plan: Unlikely seizure, given episodes 2 years apart. Follow up with Neurology for further work up. (5) Anemia: Start date: 11/29/18 Start time: 10:06 Status: Chronic Discharge Plan Disposition Patient Disposition: HOME Condition: Improving Discharge Details Chief Complaint: Dizzy/Sync Clinical Impression: CHRISTIN (acute kidney injury), Syncope, Observed seizure-like activity Reason For Visit: SYNCOPE, CHRISTIN Admit Date/Time: 11/27/18 19:51 Admit Provider: Danny Chavez Attending Provider: Danny Chavez Primary Care Provider: Ebony Celis ED Provider: Connor Linares Hospital Course Hospital Course: Mr. Quispe was admitted for syncopal episode, CHRISTIN, dehydration admitted to M/S telemetry for observation. 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 5 min episode of seizure like activity with syncope and confusion following episode lasting a couple of mins. Head CT in ED with lipoma to scalp and CXR with no acute abnormality. Phone consultation with neurology recommend EEG, MRI, place on Keppra if second episode in last 6 months if episode greater than 1 year no keppra and follow up in office. MRI negative for abnormality, last syncopal episode was 2 years ago and EEG without seizure activity. CHRISTIN on admission with Creatinine of 2.50 spoke with patient about changing blood pressure medications due to nephrotoxicity, and lack of fluid intake; however he adamantly did not want BP medications switched until follow up with PCP. Recommend less nephrotoxic bp regimen. Creatinine did normalize to 1.11 with IVF over 36 hours. 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 Recommend he does not drive or work until cleared by PCP, spoke about dangers of working and driving with possible syncopal episode, he verbalized understanding. Should follow up with PCP as soon as possible next week. Also recommend sleep study for ROSARIO given Vtach. Home Meds and New Rx's Prescriptions: Continued rosuvastatin [Crestor] 10 mg tablet 10 mg PO DAILY Qty: 90 RF: 4 losartan-hydrochlorothiazide 50-12.5 mg tablet 1 tab PO DAILY Qty: 90 RF: 3 Symbicort 80-4.5 mcg/actuation HFA aerosol inhaler 2 puff IH BID Qty: 10.2 RF: 12 Discharge Instructions Instructions: Acute Kidney Injury (GEN), Heart Healthy Diet (GEN), Syncope (GEN), Telemetry Monitoring (GEN), DASH Eating Plan (GEN), Hypertension (GEN) Additional Instructions: DO NOT DRIVE OR WORK UNTIL FOLLOW UP WITH PRIMARY PROVIDER DRINK PLENTY OF WATER Talk to your provider about changing medications for bp due to severe dehydration and kidney injury. Your kidney function is normal again but if you take these medications and do not drink water it can cause permanent damage. Wear the event monitor for 30 days. Follow up with neurology. You will be scheduled for outpatient Echo. They will call with date and time. Stand Alone Forms: Nursing Discharge Form Referrals: Ebony Celis [Primary Care Provider] - Activity:: Activity as Tolerated Equipment/Supplies:: No Equipment Needed Diet:: As Tolerated Discharge Orders Discharge Orders: Discharge Order (Routine); Ordered 11/29/18 Ordered By: Pari Lobo DS: Summary Status at Discharge Functional status at discharge: independent ambulation Overall status at discharge: patient is back to baseline Mental Status: mental status grossly normal Speech and Movement: speech and movement normal Mood: congruent mood Affect: normal affect Exam Const General: cooperative, healthy appearing, comfortable and no acute distress Nutritional Appearance: overweight Orientation: alert, awake and oriented x3 Chest Chest: normal inspection of the chest and localized rib tenderness with anteroposterior compression Resp Effort & Inspection: normal respiratory effort and able to speak in complete sentences Auscultation: clear to auscultation bilaterally Cardio Jugular venous pressure: no JVD Palpation: normal PMI Rate: regular rate Rhythm: regular rhythm Heart Sounds: S1 normal, S2 normal and normal, physiologic split S2 Pulses: normal peripheral pulses GI Inspection: normal to inspection and obesity Palpation: soft and no hepatosplenomegaly Percussion: normal to percussion Auscultation: normal bowel sounds Rectal Exam: deferred Back/Spine/Pelvis Back: no CVA tenderness Cervical Spine: normal cervical lordosis Thoracic/Lumbar Spine: thoracic and lumbar spine normal to inspection Skin General skin exam: no rashes or lesions noted Neuro General: alert, awake, oriented x3, moves all extremities and no focal motor deficits Extrem General: normal to inspection, full ROM, normal capillary refill, no joint enlargement, no clubbing, cyanosis or edema, no pedal edema and no calf tenderness Psych Appearance: grossly normal Mental Status: mental status grossly normal Speech and Movement: speech and movement normal Mood: congruent mood Affect: normal affect Attitude: cooperative Thought Process: normal Thought Content: normal Insight: insight good Judgment: judgment good DS: Data Vitals/I&O Vitals and I&O: Vital Signs Temperature 37.1 C 11/29/18 07:15 Temperature Source Tympanic 11/29/18 07:15 Pulse 88 11/29/18 07:15 Pulse Rhythm Regular 11/29/18 03:45 Pulse 91 H 11/27/18 18:46 Respiratory Rate 16 11/29/18 07:15 Respiratory Effort Non-Labored 11/29/18 03:45 Respiratory Depth Normal 11/29/18 03:45 Respiratory Pattern Normal 11/29/18 03:45 Blood Pressure 144/81 H 11/29/18 07:15 Blood Pressure Mean 89 11/27/18 18:46 Blood Pressure Position Supine 11/27/18 17:20 Pulse Oximetry 99 11/29/18 07:15 Oxygen Delivery Method Room Air 11/29/18 07:15 Oxygen Flow Rate 0 11/29/18 07:15 Pain Level 0 11/29/18 07:15 Comment 11/29/18 03:45 Intake & Output 11/28/18 11/28/18 11/29/18 11:59 23:59 11:59 Intake Total 2332.5 / 4332.5 2000 / 4332.5 2455.0 / 2455.0 Output Total 1500 / 2100 600 / 2100 650 / 650 Balance 832.5 / 2232.5 1400 / 2232.5 1805.0 / 1805.0 Weight 88 kg 86.9 kg Intake: IV 1932.5 / 3932.5 2000 / 3932.5 1955.0 / 1955.0 Oral 400 / 400 500 / 500 Output: Urine 1500 / 2100 600 / 2100 650 / 650 Other: Urine Color Pale Yellow Yellow Straw Urine Appearance Clear Clear Clear Urine Odor Normal Normal None Comment unable to measure it. Voiding Methods Toilet Toilet Toilet Data Completed and Pending Completed studies during hospitalization [Text1]: Exam(s) PROCEDURE INFORMATION: Exam: XR Chest, 2 Views Exam date and time: 11/27/2018 5:33 PM Clinical history: 63 years old, male; Other: Syncope TECHNIQUE: Imaging protocol: XR of the chest Views: 2 views. COMPARISON: CR XR CHEST 2V PA LATERAL 04/18/2018 3:33 PM FINDINGS: Lungs: Normal pulmonary expansion. Pulmonary vasculature grossly normal. No infiltrates. Pleural space: No pleural effusion. No pneumothorax. Heart/Mediastinum: Heart size normal. No tracheal/mediastinal shift. Vasculature: Mild aortic ectasia and tortuosity. Bones/joints: No acute osseous abnormalities are identified. Soft tissues: 2 mm radiodense foreign body in the anterior upper left chest soft tissues, unchanged from 04/18/2018. IMPRESSION: 1. No acute thoracic process. 2. 2 mm radiodense foreign body in the left anterior upper chest soft tissues, unchanged. Dictated and Authenticated by: Logan Pugh MD. PROCEDURE INFORMATION: Exam: CT Head Without Contrast Exam date and time: 11/27/2018 5:33 PM Clinical history: 63 years old, male; Syncope and collapse TECHNIQUE: Imaging protocol: Computed tomography of the head without contrast. COMPARISON: No relevant prior studies available. FINDINGS: Brain: Mild generalized atrophy with minimal periventricular white matter ischemic changes consistent with the patient's advanced age. No extra-axial fluid collections. No evidence of acute intracranial hemorrhage. Prasad-white differentiation is well maintained. No evidence of acute or subacute intracranial ischemia/infarct. No intracranial mass lesions. Midline shift: No midline shift or herniation. Ventricles: Ventricles normal. Bones/joints: The calvarium and visualized facial bones are intact. Sinuses: Visualized paranasal sinuses are clear. Mastoid air cells: Visualized mastoid air cells are clear. Orbits: Orbital contents demonstrate no evidence of acute abnormality. Soft tissues: 3 x 0.5 centimeter fat density lesion along the right frontal scalp on series 2 image 33 consistent with lipoma, measuring -91 Hounsfield units average density. No underlying bony abnormality. Vasculature: Mild atherosclerotic calcific plaque is identified in the visualized distal ICA segments . No asymmetric vascular hyperdensities are identified. Other findings: The IACs are grossly normal. The sella is grossly normal. IMPRESSION: 1. No acute intracranial process. 2. 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 No underlying bony abnormalities. Labs on day of discharge: Labs from last 24 hours 11/29/18 11/29/18 11/28/18 06:51 06:51 13:35 WBC 5.24 RBC 3.94 L Hgb 11.9 L Hct 36.1 L MCV 91.6 MCH 30.2 MCHC 33.0 RDW 12.1 Plt Count 235 MPV 9.4 Immature Gran % 0.2 Neutrophils % 67.9 Lymphocytes % 19.5 Monocytes % 10.1 Eosinophils % 1.9 Basophils % 0.4 Absolute Neutrophils 3.56 Absolute Lymphocytes 1.02 L Absolute Monocytes 0.53 Absolute Eosinophils 0.10 Absolute Basophils 0.02 Sodium 143 Potassium 3.6 Chloride 111 H Carbon Dioxide 22.1 Anion Gap 9.9 BUN 16 D Creatinine 1.11 Estimated GFR/1.73 m2 >= 60.00 Glucose 91 Calcium 7.7 L Magnesium 1.8 Urine Color Yellow Urine Clarity Clear Urine pH 6.0 Ur Specific [place] 1.015 Urine Protein Negative Urine Ketones Negative Urine Blood Negative Urine Nitrite Negative Urine Bilirubin Negative Urine Urobilinogen 0.2 Ur Leukocyte Esterase Negative Urine Glucose Negative [facility] Medical History Depression HTN (hypertension) Restless leg syndrome Surgical History Colonoscopy - IV Sedation (10/19/16) Family History Mother No problems noted. Father No problems noted. Sister No problems noted. Sister No problems noted. Sister No problems noted. Sister No problems noted. Brother No problems noted. Brother No problems noted. Brother No problems noted. Brother No problems noted. Brother No problems noted. Son No problems noted. Son No problems noted. Daughter No problems noted. Daughter No problems noted. Social History Smoking/Tobacco Use Status: Never Alcohol Intake: former Drug use: Occasionally Substance use type: marijuana Details: quit drinking 31 yrs ago Do you feel safe at home: Yes Do you feel safe in your relationship?: Yes
[2018-11-29 10:47] VITALS: PULSE 74
--- NOTE | 2018-11-29 16:04 | PDOC.CMDIS ---
- If Service Date Differs Date of service: 11/29/18 Time of Service: 16:04 LACE Index Scoring Tool - Questions: Length of Stay (in days): 2 Acuity (Admit via E.D.?): Yes E.D. Visits: 1 - Answers: Total Score: 6 Risk of Readmission: Low Risk Care Management Discharge Reason for Hospitalization: Syncope, CHRISTIN Discharge Plan: Nahun will be discharged home with no services. He will need follow up with his PCP and an outpatient ECHO and cardiac event monitor is being recommended . He will transport via private vehicle with friends/family. Patient/Family Education Needs: Discharge plan, limitations, follow up plan and Ask Me Three.
--- NOTE | 2018-12-02 08:00 | CER_ITS ---
Cardiac Event Recorder Cardiac Event Note: This is a 1 month event recorder ordered for the indication of syncope and collapse. ?The predominant rhythm was normal sinus with an average heart rate of 84 bpm. ?There were no episodes of atrial fibrillation. ?There were no episodes of supraventricular tachycardia. ?There were one episode of ventricular tachycardia which lasted 4 beats. There were moderate (3%) ventricular ectopic beats. ?There were no patient triggered events. ?There were no episodes of high degree heart block or pauses greater than 3 seconds. Date of service: 12/30/18 Time of Service: 16:15 CC: Dictated by: BUD MENESES MD Dictated:: [id number] <Electronically signed by Bud Meneses M.D.> 12/30/18 [id number]
== END 2018-11-29 11:24 | disposition home or self-care (01) ==
LOC: ER 19:58 → MS 20:48
PROVIDERS: Internal Medicine; Admitting Provider Internal Medicine; Emergency Provider Student in an Organized Health Care Education/Training Program; Visit Provider Internal Medicine
DX: R55 Syncope and collapse (principal); I47.2 Ventricular tachycardia; N17.9 Acute kidney failure, unspecified; E86.0 Dehydration; D50.9 Iron deficiency anemia, unspecified; F12.90 Cannabis use, unspecified, uncomplicated; J45.909 Unspecified asthma, uncomplicated; I10 Essential (primary) hypertension
CPT/HCPCS: 36415; 80048; 80053; 80307; 93005; 93270; 94640; 95819; 96360; 96361; 99220; 99233; 99239; 99285; 70450; 70551; 71046; 81003; 82607; 82728; 82746; 83540; 83550; 83735; 84484; 85025; 93010; 99217; 99226; G0378; J1650

== ENCOUNTER 2018-12-02 07:00 | Outpatient (CLI) | payer OTHER, SELFPAY ==
[2018-12-02 12:39] LABS: Abs Immature Grans 0.01 k/cumm (0.0-0.09); Absolute Basophil Count 0.02 k/cumm (0.0-0.2); Absolute Eosinophil Count 0.13 k/cumm (0.0-0.7); Absolute Lymphocyte Count 0.95 k/cumm (1.2-3.4); Absolute Monocyte Count 0.65 k/cumm (0.11-0.7); Absolute Neutrophil Count 5.18 k/cumm (1.2-6.7); Basophils % 0.3; Eosinophils % 1.9; HCT 41.1 % (40.0-50.0); HGB 13.8 g/dL (13.5-17.5); Immature Grans % 0.1; Lymphocytes % 13.7; Mean Corp. HGB Concentration 33.6 g/dL (32.0-36.0); Mean Corpuscular Hemoglobin 30.5 pg (27.0-33.0); Mean Corpuscular Volume 90.7 fL (80-95); Mean Platelet Volume 9.7 fL (8.0-11.0); Monocytes % 9.4; Neutrophils % 74.6; Platelet Count 311 x1000/uL (130-400); RBC 4.53 m/cumm (4.50-6.00); RBC Distribution Width 12.3 % (11.8-14.1); White Blood Cell Count 6.94 k/cumm (4.4-10.8)
[2018-12-02 12:58] LABS: ALT 49 U/L (16-63); AST 29 U/L (15-37); Albumin 4.3 g/dL (3.4-5.0); Alkaline Phosphatase 79 U/L (46-116); Anion Gap 12.9 mmol/L (3-11); BUN 20 mg/dL (7-18); Bilirubin, Total 0.6 mg/dL (0.2-1.0); CO2 23.1 mmol/L (21.0-32.0); CREATININE 1.22 mg/dL (0.70-1.30); Calcium 9.4 mg/dL (8.5-10.1); Chloride 104 mmol/L (98-107); Creatine Kinase 186 U/L (39-308); Glucose 100 mg/dL (70-100); Sodium 140 mmol/L (136-145); Total Protein 7.4 g/dL (6.4-8.2)
--- NOTE | 2018-12-30 16:15 | W.CARDEVENT ---
Cardiac Event Recorder Cardiac Event Note: This is a 1 month event recorder ordered for the indication of syncope and collapse. ?The predominant rhythm was normal sinus with an average heart rate of 84 bpm. ?There were no episodes of atrial fibrillation. ?There were no episodes of supraventricular tachycardia. ?There were one episode of ventricular tachycardia which lasted 4 beats. There were moderate (3%) ventricular ectopic beats. ?There were no patient triggered events. ?There were no episodes of high degree heart block or pauses greater than 3 seconds. Date of service: 12/30/18 Time of Service: 16:15
== END 2018-12-02 07:20 ==
PROVIDERS: PCP Emergency Medicine; Visit Provider Emergency Medicine
DX: R55 Syncope and collapse
CPT/HCPCS: 36415; 80053; 82550; 85025

== ENCOUNTER 2019-10-07 16:39 | Outpatient (REF) | payer OTHER, SELFPAY ==
[2019-10-07 22:14] LABS: Calculated LDL 77 mg/dL (<100); Cholesterol 138 mg/dL (<200); HDL Cholesterol 38 mg/dL (40-60); Triglyceride 116 mg/dL (<150)
[2019-10-08 18:16] LABS: PSA, Screening 0.7 ng/mL (0.0-4.5)
== END 2019-10-07 16:59 ==
LOC: LBN 16:39
PROVIDERS: PCP Emergency Medicine; Visit Provider Emergency Medicine
DX: E78.5 Hyperlipidemia, unspecified (principal); Z12.5 Encounter for screening for malignant neoplasm of prostate
CPT/HCPCS: 80061; 84153

== ENCOUNTER 2021-03-20 01:51 | Outpatient (CLI) | payer OTHER, SELFPAY ==
--- NOTE | 2021-03-20 06:30 | DI.RAD_ITS ---
Exam(s) XR CHEST 2V PA LATERAL EXAM: XR CHEST 2V PA LATERAL CLINICAL HISTORY: worsening asthma,FATIGUE,J45.909,R53.83. TECHNIQUE: 2D digital imaging was performed. COMPARISON: CR CHEST 2 VIEWS PA,LAT from 07/14/2008 CR XR CHEST 2V PA LATERAL from 04/18/2018 CR,XR XR CHEST 2V PA LATERAL from 11/27/2018 FINDINGS: Heart size is normal. The mediastinum is not widened. Lungs are clear. No acute infiltrates nor pleural effusions. On the lateral view there is a small density noted posteriorly which is unchanged from 2009 and there fore benign. In addition, there is a small 2 millimeter radiopaque density-foreign body which is unc hanged from prior studies. On the lateral view of prior studies this appears to be in the subcutaneo us soft tissues of the anterior chest. IMPRESSION: No acute pulmonary findings.Other findings as above. DATA REPOSITORY: RADIATION DOSE DELIVERED:
== END 2021-03-20 02:11 ==
LOC: DI 01:51
PROVIDERS: PCP Emergency Medicine; Visit Provider Emergency Medicine
DX: J45.909 Unspecified asthma, uncomplicated (principal); R53.83 Other fatigue
CPT/HCPCS: 71046

== ENCOUNTER 2021-03-22 03:12 | Outpatient (CLI) | payer OTHER, SELFPAY ==
[2021-03-22 07:49] LABS: Abs Immature Grans 0.02 10^3/uL (0.0-0.06); Absolute Basophil Count 0.02 10^3/uL (0.0-0.2); Absolute Eosinophil Count 0.67 10^3/uL (0.0-0.7); Absolute Lymphocyte Count 1.25 10^3/uL (1.2-3.4); Absolute Monocyte Count 0.71 10^3/uL (0.1-0.8); Absolute Neutrophil Count 3.45 10^3/uL (1.2-6.7); Basophils % 0.3; Eosinophils % 10.9; HCT 47.6 % (40.0-50.0); HGB 15.2 g/dL (13.5-17.5); Immature Grans % 0.3; Lymphocytes % 20.4; MCH 29.9 pg (27.0-33.0); MCHC 31.9 % (32.0-36.0); MCV 93.5 fL (80-95); MPV 9.1 fL (8.0-11.0); Monocytes % 11.6; Neutrophils % 56.5; Nucleated RBC 0 %; Platelet Count 217 10^3/uL (130-400); RBC 5.09 10^6/uL (4.36-5.78); RDW 11.8 % (11.8-14.1); WBC 6.12 10^3/uL (4.4-10.8)
[2021-03-22 09:58] LABS: ALT 53 U/L (16-63); AST 30 U/L (15-37); Albumin 3.9 g/dL (3.4-5.0); Alkaline Phosphatase 92 U/L (46-116); Anion Gap 11.1 mmol/L (3-11); BUN 16 mg/dL (7-18); Bilirubin, Total 0.4 mg/dL (0.2-1.0); CO2 23.9 mmol/L (21.0-32.0); CREATININE 1.3 mg/dL (0.70-1.30); Calcium 8.9 mg/dL (8.5-10.1); Chloride 106 mmol/L (98-107); Estimated GFR 55.58 (mL/min/1.73m2); Glucose 121 mg/dL (74-106); Potassium 3.9 mmol/L (3.5-5.1); Sodium 141 mmol/L (136-145); TSH 3.72 uIU/mL (0.36-3.74)
[2021-03-22 10:09] LABS: C-Reactive Protein 0.16 mg/dL (0.0-0.3)
== END 2021-03-22 03:13 | disposition home or self-care (01) ==
LOC: LBO 03:12
PROVIDERS: PCP Emergency Medicine; Visit Provider Emergency Medicine
DX: J45.909 Unspecified asthma, uncomplicated (principal); R53.83 Other fatigue; E03.9 Hypothyroidism, unspecified
CPT/HCPCS: 36415; 80053; 84443; 85025; 86140

== ENCOUNTER 2022-06-15 11:37 | Outpatient (CLI) | payer MEDICARE, SELFPAY ==
[2022-06-15 12:23] LABS: CREATININE 1.3 mg/dL (0.70-1.30); Calculated LDL 103 mg/dL (<100); Cholesterol 159 mg/dL (<200); Estimated GFR 60.59 (mL/min/1.73m2); HDL Cholesterol 40 mg/dL (40-60); Potassium 4.2 mmol/L (3.5-5.1); Triglyceride 82 mg/dL (<150)
== END 2022-06-15 11:38 | disposition home or self-care (01) ==
LOC: LOS 11:38
PROVIDERS: PCP Family Medicine; Visit Provider Family Medicine
DX: E78.5 Hyperlipidemia, unspecified (principal); I10 Essential (primary) hypertension
CPT/HCPCS: 36415; 80061; 82565; 84132

== ENCOUNTER 2022-09-23 05:15 | Emergency (ER) | payer MEDICARE, SELFPAY ==
--- NOTE | 2022-09-23 05:15 | DI.CT_ITS ---
Exam(s) CT ABDOMEN PELVIS WO EXAM: CT ABDOMEN PELVIS WO CLINICAL HISTORY: LlQ pain. TECHNIQUE: Imaging Protocol: Axial computed tomography images with coronal and sagittal reformatted images were created and reviewed CONTRAST MATERIAL: Intravenous: none Oral: None COMPARISON: No exams were available for comparison FINDINGS: VISUALIZED LUNG BASES: No nodules nor pleural effusions evident. ABDOMEN: There is no ascites. LIVER: There is a solitary subcapsular calcification in the upper right hepatic lobe measuring approx imately 7 x 5 mm. No other focal hepatic lesions evident on this noninfused study. GALLBLADDER/BILIARY: No obvious gallbladder pathology. CBD is not dilated. PANCREAS: No evidence of pancreatic mass nor dilatation of the pancreatic duct. SPLEEN: Spleen is not enlarged. No obvious intrasplenic lesions. ADRENALS: There are no significant adrenal masses. KIDNEYS:There is a nonobstructive calculus in the lower pole of the right kidney measuring 2 mm. No other right kidney findings. There is moderate hydronephrosis and hydroureter on the left side, the ureter being dilated to 1 cm size and this is related to a calculus in the distal left ureter 2 cm ab ove the UVJ, this calculus measuring 7-8 mm. There are no calculi within the nondistended urinary bl adder. Other punctate 1 millimeter calculi are noted in the upper and lower poles of the left kidney . No solid renal masses evident.. ABDOMINAL AORTA: Abdominal aorta is not enlarged. LYMPH NODES: There is no retroperitoneal nor paraaortic adenopathy. ABDOMINAL WALL: No evidence of significant anterior abdominal wall nor inguinal hernia. GI: There is no evidence of bowel obstruction, free air, nor abscess. PELVIS: LYMPH NODES: There is no intrapelvic nor inguinal adenopathy. GI: No evidence of appendicitis.No evidence of sigmoid diverticulitis. URINARY BLADDER: No calculi nor obvious masses evident REPRODUCTIVE: Prostate size normal. Seminal vesicles unremarkable. OSSEOUS: No significant osseous lesions. Superior endplate L2 Schmorl's node invagination and mild concavity. Not acute appearing. No other osseous findings. IMPRESSION: 1. The main finding here is a distal left ureteral calculus measuring 7-8 mm with hydronephrosis and hydroureter above this level. Left ureter is dilated to 1 cm size. 2. There is a nonobstructive 2-3 millimeter calculus in lower pole of the opposite-right kidney. 3. No calculi in the urinary bladder. RADIATION DOSE DELIVERED: 893.33mGy.cm Total DLP DATA REPOSITORY: All CT scans at this facility are submitted to the National Radiology Data Registry (NRDR) Dose Index Registry (DIR) with the [employer] (A[employer]). RADIATION OPTIMIZATION: All CT scans at this facility use at least one of these dose optimization te chniques: automated exposure control; mA and/or kV adjustment per patient size (includes targeted exa ms where dose is matched to clinical indication); or iterative reconstruction.
[2022-09-23 05:19] VITALS: BP 174/88; PULSE 104; RESP 16; TEMP 36.3; O2SAT 98
[2022-09-23 05:38] LABS: Abs Immature Grans 0.02 10^3/uL (0.0-0.06); Absolute Basophil Count 0.05 10^3/uL (0.0-0.2); Absolute Eosinophil Count 0.33 10^3/uL (0.0-0.7); Absolute Lymphocyte Count 2.24 10^3/uL (1.2-3.4); Absolute Monocyte Count 1.15 10^3/uL (0.1-0.8); Absolute Neutrophil Count 6.06 10^3/uL (1.2-6.7); Basophils % 0.5; Eosinophils % 3.4; HCT 43.2 % (40.0-50.0); HGB 14.3 g/dL (13.5-17.5); Immature Grans % 0.2; Lymphocytes % 22.7; MCH 29.6 pg (27.0-33.0); MCHC 33.1 % (32.0-36.0); MCV 89 fL (80-95); MPV 9.2 fL (8.0-11.0); Monocytes % 11.7; Neutrophils % 61.5; Platelet Count 300 10^3/uL (130-400); RBC 4.83 10^6/uL (4.36-5.78); RDW 11.8 % (11.8-14.1); RDW-SD 38.5 fL; WBC 9.85 10^3/uL (4.4-10.8)
[2022-09-23 05:43] LABS: Bilirubin Negative (Negative); Blood Large (Negative); Clarity Clear (Clear); Glucose Negative (Negative); Ketones Trace mg/dL (Negative); Leukocyte Esterase Negative (Negative); Nitrite Negative (Negative); Specific Gravity 1.025 (1.005-1.025); Urobilinogen 0.2 mg/dL (Up to 0.2); pH 5.5 (5-8)
[2022-09-23] MEDS: Normal Saline 1,000 ML 1000 ML IV ×2 (05:45→06:59)
--- NOTE | 2022-09-23 05:46 | ED.GENADUL_ITS ---
Discharge Plan Disposition Patient Disposition: Home Condition: Improving Discharge Details Clinical Impression: Kidney stone on left side Primary Care Provider: Kishore Palmer ED Provider: Razia Ornelas Home Meds and New Rx's Prescriptions: New ondansetron 8 mg tablet,disintegrating 8 mg PO Q8H PRN (Reason: nausea and vomiting) Qty: 21 0RF oxycodone-acetaminophen [Percocet] 5-325 mg tablet 1 tab PO Q4H PRN (Reason: pain) Qty: 21 0RF Continued rosuvastatin [Crestor] 10 mg tablet 10 mg PO DAILY Qty: 90 4RF losartan 50 mg tablet 50 mg PO DAILY Qty: 90 3RF Discharge Instructions Instructions: Kidney Stones (ED) Additional Instructions: Dr. Fonseca's office will call you Saturday for follow-up appointment time. He is a local urologist. Drink plenty of fluids. Take the Zofran as needed for nausea and the Percocet as needed for pain. You may take 1-2 Percocet every 4-6 hours as needed for pain. Return to ED for fever of 100.4 or above, uncontrolled pain or vomiting, any other concerns. Medical Decision Making Patient declines antiemetic and analgesic pain medication in the ED. Patient was updated on his CT result. He has fairly pronounced hydronephrosis with a distal 7 mm stone. He now says it will take some pain medicine. Had considered Toradol but will hold off on this due to his elevated BUN and creatinine. This may be just because he is a little bit dry as he has not been eating or drinking much this weekend. I will give him a second liter of normal saline. We will also give him some Zofran and Dilaudid. We will give him prescriptions for Zofran and Percocet to take as needed. Dr. Fonseca's office will call him Saturday for a follow-up appointment as a large stone may not pass. Patient knows to come back for fever of 100.4 or above, uncontrolled pain, protracted vomiting, other concerns. Medical Records Medical records reviewed: Yes I reviewed the patient's medical records. Imaging Data Radiologic Study: Radiologist's impression: Exam(s) PROCEDURE INFORMATION: Exam: CT Abdomen And Pelvis Without Contrast Exam date and time: 09/23/2022 5:54 AM Age: 67 years old Clinical indication: Patient HX: Llq pain for 2 days TECHNIQUE: Imaging protocol: Computed tomography of the abdomen and pelvis without contrast. Radiation optimization: All CT scans at this facility use at least one of these dose optimization techniques: automated exposure control; mA and/or kV adjustment per patient size (includes targeted exams where dose is matched to clinical indication); or iterative reconstruction. COMPARISON: CR XR CHEST 2V PA LATERAL 03/20/2021 7:46 AM FINDINGS: Liver: Normal.? Subcapsular calcification at the hepatic dome. Gallbladder and bile ducts: Normal. No calcified stones. No ductal dilation. Pancreas: Normal. No ductal dilation. Spleen: Normal. No splenomegaly. Adrenal glands: Normal. No mass. Kidneys and ureters: Left distal ureter 7 mm stone with moderate proximal hydroureteronephrosis and left perinephric stranding. Punctate nonobstructing nephrolith at the right lower pole. Stomach and bowel: Unremarkable. No obstruction. No mucosal thickening. Appendix: No evidence of appendicitis. Intraperitoneal space: Unremarkable. No free air. No significant fluid collection. Vasculature: Atherosclerosis. No abdominal aortic aneurysm. Lymph nodes: Unremarkable. No enlarged lymph nodes. Urinary bladder:? Not well distended.? Borderline wall thickening up to 7 mm. Reproductive:? Partially imaged hydroceles. Bones/joints:? Mild lumbar spondylosis.. No acute fracture. Soft tissues: Bilateral fat containing inguinal hernias. Tiny fat containing periumbilical hernia. IMPRESSION: Left distal ureter 7 mm stone with moderate proximal hydroureteronephrosis and left perinephric stranding. Dictated and Authenticated by: Migdalia Tavares MD. Ordering:MEHDI Randle MD Lab Data Lab results reviewed: Yes I reviewed the patient's lab results. Lab results narrative: CBC is normal. Patient's BUN and creatinine are 33 and 2 with a glucose of 120. Urinalysis shows 30 protein, trace ketones, large blood, greater than 50 RBCs. HPI General Date/Time Provider Initiated Documentation: 09/23/22 05:28 . HPI Narrative: This 67-year-old male patient presents with a chief complaint of left lower quadrant pain that began Gurjit evening, 2 days ago. Patient reports that it is gnawing and annoying keeping him up. At times it gets sharp and more severe. At its worst its been a 7 out of 10. The patient has a history of kidney stones and says this feels different. Does say that he feels like he has to pee a lot there is no burning or pain on urination. He denies hematuria. He is moving his bowels without difficulty. He has had some nausea when the pain is really bad but denies vomiting or diarrhea. He does not have a fever. There is no back or testicle pain. Related Data Home Medications Medication Instructions Recorded Confirmed rosuvastatin 10 mg tablet (Crestor) 10 mg PO DAILY #90 tabs 06/02/22 09/23/22 losartan 50 mg tablet 50 mg PO DAILY #90 tabs 08/30/22 09/23/22 ondansetron 8 mg disintegrating 8 mg PO Q8H PRN nausea and 09/23/22 tablet vomiting #21 tabs oxycodone-acetaminophen 5 mg-325 1 tab PO Q4H PRN pain #21 tabs 09/23/22 mg tablet (Percocet) Previous Rx's Medication Instructions Recorded rosuvastatin 10 mg tablet (Crestor) 10 mg PO DAILY #90 tabs 06/02/22 losartan 50 mg tablet 50 mg PO DAILY #90 tabs 08/30/22 ondansetron 8 mg disintegrating 8 mg PO Q8H PRN nausea and 09/23/22 tablet vomiting #21 tabs oxycodone-acetaminophen 5 mg-325 1 tab PO Q4H PRN pain #21 tabs 09/23/22 mg tablet (Percocet) Allergies Allergy/AdvReac Type Severity Reaction Status Date / Time No Known Allergies Allergy Verified 09/23/22 05:17 General Stated Complaint: Abd Prob ALFONZO: 3 Review of Systems Constitutional Constitutional: Denies chills, Denies fever(s), Denies headache(s) and Denies weakness Eyes Eyes: Denies diplopia and Reports other (no redness) ENT Ears, Nose, Mouth, and Throat: Denies otalgia, Denies headache(s), Denies nasal congestion, Denies nasal discharge, Denies neck pain and Denies sore throat Cardiovascular Cardiovascular: Denies chest pain, Denies palpitations and Denies dyspnea Respiratory Respiratory: Denies cough and Denies dyspnea Gastrointestinal Gastrointestinal: Reports abdominal pain, Denies diarrhea, Reports nausea and Denies vomiting Genitourinary Genitourinary: Denies difficulty urinating, Denies dysuria and Reports urinary frequency Musculoskeletal Musculoskeletal: Denies myalgias, Denies muscle weakness, Denies neck pain, Denies numbness and Reports other (edema) Integumentary/Breasts Skin/Breast: Denies change in pigmentation and Denies rash Neurologic Neurologic: Denies headache(s), Denies numbness and Denies weakness Endocrine Endocrine: Denies palpitations PFSH All Active Problems (Updated 09/23/22 @ 06:50 by Razia Ornelas MD) Kidney stone on left side (Acute) Fatigue (Acute) Asthma (Chronic) Hyperlipidemia (Acute) Anemia (Chronic) Seizure (Acute) Dehydration (Acute) Acute kidney injury (nontraumatic) (Acute) Syncope (Chronic) Asthma (Chronic) Depression (Acute 07/30/14) Essential hypertension (Acute 11/22/15) Restless leg syndrome (Acute 07/30/14) Seasonal allergic rhinitis (Acute 11/22/15) Medical History Back injury tree fell Depression HTN (hypertension) Restless leg syndrome Surgical History Colonoscopy - IV Sedation (10/19/16) Family History Father , 76 Asthma Mother No problems noted. Sister No problems noted. Sister No problems noted. Sister No problems noted. Brother No problems noted. Brother No problems noted. Son No problems noted. Daughter No problems noted. Daughter No problems noted. Maternal Grandfather No problems noted. Paternal Grandfather No problems noted. Paternal Grandmother No problems noted. Maternal Grandmother No problems noted. Social History Smoking/Tobacco Use Status: Current every day Smokeless tobacco user: snuff Second Hand Exposure: Yes Smoking risk assessment performed?: Yes Alcohol Intake: former Drug use: Occasionally Substance use type: marijuana Details: quit drinking 31 yrs ago Caregiver/Support person: No Household members: significant other Housing: house Communication Needs: None current occupation: [employer]; Self-employed Pets and animals: No Sexually active: Yes Do you think of yourself as: straight/heterosexual Current gender identity: male What is your relationship status?: living with partner How often do you talk on the phone with friends or family?: three or more times per week How often do you get together with friends or relatives?: three or more times per week How often do you attend spiritism or cheondoism services?: decline to answer Do you belong to any clubs or organized social groups?: no Panel score (0-1 are the most socially isolated patients): 2 What type of physical activity do you participate in: other Details: Work Frequency: does not exercise Floridalma/Yazdanism: No preference Special floridalma needs: No Seatbelt use: always Helmet use: No Drive intox or ride w/intox driver service technician: No Do you feel safe at home: Yes Do you feel safe in your relationship?: Yes Exam Const General: no acute distress, well developed, well groomed and not in acute distress Nutritional Appearance: well nourished Orientation: alert and oriented x3 HENMT Head: normocephalic and atraumatic Ears: external ears normal Mouth: oropharynx normal and moist mucous membranes Throat: posterior oropharynx normal Eyes Conjunctivae: conjunctivae normal Neck Neck: full ROM and supple Chest Chest: normal inspection of the chest Resp Effort & Inspection: normal respiratory effort Auscultation: clear to auscultation bilaterally Cardio Rate: regular rate Rhythm: regular rhythm Heart Sounds: no murmurs and no rubs GI Inspection: normal to inspection and other (No hernia evident) Palpation: soft, tender (Left lower quadrant tenderness to palpation without guarding or rebound) and other (non distended) Auscultation: normal bowel sounds Skin General skin exam: no rashes or lesions noted and other (pink, warm, dry) Neuro General: patient alert, patient awake and patient oriented x3 Speech: speech normal Motor: other (FIN[facility]) Sensory Exam: no sensory deficits noted Extrem General: normal to inspection, full ROM and pedal edema present Psych Mental Status: mental status grossly normal Speech and Movement: speech and movement normal Affect: normal affect Course Vital Signs Vital signs: Vital Signs Temperature 36.3 C L 09/23/22 05:19 Pulse 104 H 09/23/22 05:19 Respiratory Rate 16 09/23/22 05:19 Blood Pressure 174/88 H 09/23/22 05:19 Pulse Oximetry 98 09/23/22 05:19 Temperature 36.3 C L 09/23/22 05:19 Temperature Source Tympanic 09/23/22 05:19 Pulse 104 H 09/23/22 05:19 Respiratory Rate 16 09/23/22 05:19 Respiratory Effort Normal, Non-Labored 09/23/22 05:22 Blood Pressure 174/88 H 09/23/22 05:19 Blood Pressure Position Sitting 09/23/22 05:19 Pulse Oximetry 98 09/23/22 05:19 Oxygen Delivery Method Room Air 09/23/22 05:19 Oxygen Flow Rate 0 09/23/22 05:19 Pain Level 5 09/23/22 05:19 Lab/Test Results Lab/Test Results: Laboratory Tests Range/Units 09/23/22 05:29 WBC (4.4-10.8) 10^3/uL 9.85 RBC (4.36-5.78) 10^6/uL 4.83 Hgb (13.5-17.5) g/dL 14.3 Hct (40.0-50.0) % 43.2 MCV (80-95) fL 89 MCH (27.0-33.0) pg 29.6 MCHC (32.0-36.0) % 33.1 RDW (11.8-14.1) % 11.8 Plt Count (130-400) 10^3/uL 300 MPV (8.0-11.0) fL 9.2 Immature Gran % 0.2 Neutrophils % 61.5 Lymphocytes % 22.7 Monocytes % 11.7 Eosinophils % 3.4 Basophils % 0.5 Nucleated RBC % (0.0-0.3) % 0.0 Absolute Neutrophils (1.2-6.7) 10^3/uL 6.06 Absolute Lymphocytes (1.2-3.4) 10^3/uL 2.24 Absolute Monocytes (0.1-0.8) 10^3/uL 1.15 H Absolute Eosinophils (0.0-0.7) 10^3/uL 0.33 Absolute Basophils (0.0-0.2) 10^3/uL 0.05
[2022-09-23 05:50] LABS: Epithelial Cells Negative HPF (Negative); RBC >50 HPF (0-2); WBC Negative HPF (0-5)
[2022-09-23 05:51] LABS: Bacteria Rare HPF (Negative); C & S Indicated? No; Casts Negative LPF (Negative); Crystals Negative HPF (Negative); Mucus Negative (Negative)
[2022-09-23 05:54] LABS: ALT 29 U/L (16-63); AST 19 U/L (15-37); Alkaline Phosphatase 97 U/L (46-116); Anion Gap 9.2 mmol/L (3-11); BUN 33 mg/dL (7-18); Bilirubin, Total 0.6 mg/dL (0.2-1.0); CO2 26.8 mmol/L (21.0-32.0); Calcium 8.7 mg/dL (8.5-10.1); Chloride 103 mmol/L (98-107); Estimated GFR 36.13 (mL/min/1.73m2); Glucose 120 mg/dL (74-106); Potassium 3.6 mmol/L (3.5-5.1); Sodium 139 mmol/L (136-145); Total Protein 7.5 g/dL (6.4-8.2)
--- NOTE | 2022-09-23 06:15 | DI.VRAD_ITS ---
PROCEDURE INFORMATION: Exam: CT Abdomen And Pelvis Without Contrast Exam date and time: 09/23/2022 5:54 AM Age: 67 years old Clinical indication: Patient HX: Llq pain for 2 days TECHNIQUE: Imaging protocol: Computed tomography of the abdomen and pelvis without contrast. Radiation optimization: All CT scans at this facility use at least one of these dose optimization techniques: automated exposure control; mA and/or kV adjustment per patient size (includes targeted exams where dose is matched to clinical indication); or iterative reconstruction. COMPARISON: CR XR CHEST 2V PA LATERAL 03/20/2021 7:46 AM FINDINGS: Liver: Normal. Subcapsular calcification at the hepatic dome. Gallbladder and bile ducts: Normal. No calcified stones. No ductal dilation. Pancreas: Normal. No ductal dilation. Spleen: Normal. No splenomegaly. Adrenal glands: Normal. No mass. Kidneys and ureters: Left distal ureter 7 mm stone with moderate proximal hydroureteronephrosis and left perinephric stranding. Punctate nonobstructing nephrolith at the right lower pole. Stomach and bowel: Unremarkable. No obstruction. No mucosal thickening. Appendix: No evidence of appendicitis. Intraperitoneal space: Unremarkable. No free air. No significant fluid collection. Vasculature: Atherosclerosis. No abdominal aortic aneurysm. Lymph nodes: Unremarkable. No enlarged lymph nodes. Urinary bladder: Not well distended. Borderline wall thickening up to 7 mm. Reproductive: Partially imaged hydroceles. Bones/joints: Mild lumbar spondylosis.. No acute fracture. Soft tissues: Bilateral fat containing inguinal hernias. Tiny fat containing periumbilical hernia. IMPRESSION: Left distal ureter 7 mm stone with moderate proximal hydroureteronephrosis and left perinephric stranding. Dictated and Authenticated by: Migdalia Tavares MD. Ordering:MEHDI Randle MD
[2022-09-23] MEDS: HYDROmorphone 2 MG/ML SYR 1 MG IVP (06:59)
[2022-09-23] MEDS: Ondansetron 4 MG/2 ML VIAL 8 MG IVP (06:59)
--- NOTE | 2022-09-23 07:14 | NUR.NOTE ---
Referral made per Dr. Ornelas to Urology for a 7mm kidney stone. Put the referral in the patient care technician instructor's box for follow up assistance.Nursing Note:
== END 2022-09-23 07:54 | disposition home or self-care (01) ==
PROVIDERS: Emergency Provider Emergency Medicine; PCP Family Medicine
DX: N20.0 Calculus of kidney (principal)
CPT/HCPCS: 36415; 80053; 96361; 96374; 96375; 99284; 74176; 81003; 81015; 85025; J1170; J2405

== ENCOUNTER → 2022-09-25 10:50 | Outpatient (BNVA) | payer MEDICARE, SELFPAY | PROVIDERS: PCP Family Medicine; Referring Provider Family Medicine; Visit Provider Nurse Practitioner Gerontology | DX: N20.0 Calculus of kidney (principal) | CPT/HCPCS: 99214 ==

== ENCOUNTER 2022-10-08 06:57 | Day surgery (SDC) | payer MEDICARE, SELFPAY ==
[2022-10-08] VITALS (8 sets, daily range): BP systolic 73–139; BP diastolic 44–84; PULSE 61–100; RESP 10–19; TEMP 36.2–36.5; O2SAT 95–100; BMI 27.5
[2022-10-08] MEDS: Lactated Ringers 1,000 ML 80 ML IV (07:27)
--- NOTE | 2022-10-08 08:12 | ANES.PREOP_ITS ---
General Info Date of Service Date Performed: 10/08/22 Height: 5 ft 9 in Weight: 84.6 kg Body Mass Index (BMI): 27.5 Surgical Procedure: Operation Date: 10/08/22 09:10 Proposed Procedure Side Surgeon p Cystoscopy/Laser/Retrograde/Ureteroscopy/Stone Manipulation/ Possible Stent Placement Ayan Fonseca MD Meds Allergies and Home Medications Allergies Allergy/AdvReac Type Severity Reaction Status Date / Time No Known Allergies Allergy Verified 10/08/22 07:19 Home Medication Medication Instructions Recorded rosuvastatin 10 mg tablet (Crestor) 10 mg PO DAILY #90 tabs 06/02/22 losartan 50 mg tablet 50 mg PO DAILY #90 tabs 08/30/22 ondansetron 8 mg disintegrating 8 mg PO Q8H PRN nausea and 09/23/22 tablet vomiting #21 tabs oxycodone-acetaminophen 5 mg-325 1 tab PO Q4H PRN pain #21 tabs 09/23/22 mg tablet (Percocet) ibuprofen 800 mg tablet 800 mg PO TID PRN pain #30 tabs 09/25/22 tamsulosin 0.4 mg capsule (Flomax) 0.4 mg PO DAILY #14 caps 09/25/22 Current Visit Medications: Current Medications Generic Name Dose Route Start Last Admin Trade Name Freq PRN Reason Stop Dose Admin Ringer's Solution 1,000 mls @ 80 mls/hr 10/08/22 06:00 10/08/22 07:27 IV 10/08/22 23:59 80 mls/hr INFUSION PILAR Administration Cefazolin Sodium/Dextrose 2 gm in 50 mls @ 100 mls/hr 10/08/22 06:00 Ancef Duplex IVPB 10/08/22 23:59 PREOP PILAR IV Miscellaneous Supplies 1 each 10/08/22 06:00 Iv Access IV 10/08/22 23:59 DIRECTED PILAR Sodium Chloride 0 ml 10/08/22 06:00 Normal Saline Flush 10 Ml Syr IV 10/08/22 23:59 PRN PRN Sodium Chloride 0 ml 10/08/22 06:00 Normal Saline 10 Ml Vial IJ 10/08/22 23:59 DIRECTED PRN Sterile Water 0 ml 10/08/22 06:00 Water,Injection,Sterile 10 Ml Vial IJ 10/08/22 23:59 DIRECTED PRN PFSH Active Problems Active Problems: Problem Status Onset Code Kidney stone on left side N20.0 Fatigue R53.83 Asthma J45.909 Hyperlipidemia E78.5 Anemia D64.9 Seizure R56.9 Dehydration E86.0 Acute kidney injury (nontraumatic) N17.9 Syncope R55 Asthma J45.909 Dyspnea and respiratory abnormalities R06.00, R06.89 Depression 07/30/14 F32.9 Essential hypertension 11/22/15 I10 Restless leg syndrome 07/30/14 G25.81 Seasonal allergic rhinitis 11/22/15 J30.2 Medical History Medical History Back injury tree fell Depression HTN (hypertension) Restless leg syndrome Surgical History Surgical History Colonoscopy - IV Sedation (10/19/16) Tobacco Smoking/Tobacco Use Status: Never Smokeless tobacco user: snuff Passive smoking exposure: Yes Second hand exposure: Yes Alcohol Alcohol Intake: former Substance Use Substance use: Occasionally Substance use type: marijuana Details: quit drinking 35 yrs ago Vital Signs and Lab Results Vital Signs Most Recent Vital Signs in EMR: Most Recent Vital Signs Temp Pulse Resp BP Pulse Ox 36.5 C 100 H 19 110/75 96 10/08/22 07:08 10/08/22 07:08 10/08/22 07:08 10/08/22 07:08 10/08/22 07:08 Lab Results Blood Type / Crossmatch: No Data to Display Complete Blood Count: White Blood Count 9.85 10^3/uL (4.4-10.8) 09/23/22 05:29 Red Blood Count 4.83 10^6/uL (4.36-5.78) 09/23/22 05:29 Hemoglobin 14.3 g/dL (13.5-17.5) 09/23/22 05:29 Hematocrit 43.2 % (40.0-50.0) 09/23/22 05:29 Platelet Count 300 10^3/uL (130-400) 09/23/22 05:29 Complete Metabolic Panel: Sodium 139 mmol/L (136-145) 09/23/22 05:29 Potassium 3.6 mmol/L (3.5-5.1) 09/23/22 05:29 Chloride 103 mmol/L (98-107) 09/23/22 05:29 Carbon Dioxide 26.8 mmol/L (21.0-32.0) 09/23/22 05:29 BUN 33 mg/dL (7-18) H 09/23/22 05:29 Creatinine 2.0 mg/dL (0.70-1.30) H 09/23/22 05:29 Est GFR (CKD-EPI 2020) 36.13 (mL/min/1.73m2) 09/23/22 05:29 Calcium 8.7 mg/dL (8.5-10.1) 09/23/22 05:29 Albumin 4.0 g/dL (3.4-5.0) 09/23/22 05:29 Glucose 120 mg/dL (74-106) H 09/23/22 05:29 Liver Function Panel: Alanine Aminotransferase (ALT/SGPT) 29 U/L (16-63) 09/23/22 05: 29 Aspartate Amino Transf (AST/SGOT) 19 U/L (15-37) 09/23/22 05:29 Coagulation Panel: No Data to Display Cardiac Panel: No Data to Display Arterial Blood Gas: No Data to Display Venous Blood Gas: No Data to Display Pancreas Panel: No Data to Display Thyroid Panel: No Data to Display Infectious Disease: No Data to Display Blood Cultures: No Data to Display Toxicology Panel: No Data to Display Imaging and Studies Imaging and Studies Study information below may be from another EMR and interpreted by another provider. Please see original notes in EMR for more complete details. Pulmonary Function Summary: DATE OF SERVICE July 15, 2018 REQUESTING PROVIDER Sandeep Cordoba D.O. INTERPRETATION OF STUDY Spirometry shows mild obstructive airways disease with no significant bronchodilator response. LUNG VOLUMES - Lung volumes show no evidence of restriction. DIFFUSION CAPACITY- Elevated. AIRWAY RESISTANCE Normal. IMPRESSION Mild obstructive airways disease with no significant bronchodilator response. This is associated with elevated diffusion capacity, this constellation of finding can be seen in asthma. If the diagnosis of asthma is in question proceeding with Methacholine challenge testing may prove to be useful. Anesthesia Assessment and Plan Anesthesia History Personal History: No History of Anesthesia Complications Family History: No Family History of Anesthesia Complications Exercise Tolerance Exercise Tolerance: Metabolic Equivalents>4 Pertinent Negatives Pertinent Negatives: No Symptoms of GERD and No Major Cardiovascular Symptoms or Complaints Cardiac & Pulmonary Exam Cardiac Exam: Normal S1/S2 Heart Sounds Pulmonary Exam: Clear Bilateral Breath Sounds Implantable Cardiac Device Does patient have a Pacemaker or an ICD?: No Airway Exam Known Difficult Airway: No Mallampati Class: 1 Mouth Opening: Normal (> 3cm) Thyromental Distance: Greater than 3 cm Neck Range of Motion: Full ROM Neck Circumference: Normal Teeth Condition: Normal Dentition ASA Classification ASA Score: ASA 2 Emergency Case?: No NPO Status NPO Status: NPO Clears >2 hours, Solids >8 hours Anesthesia Plan Resuscitation Status: Full Code Anesthesia Technique: General Anesthesia Airway Planned: LMA Monitors Used: Standard Monitors
--- NOTE | 2022-10-08 09:24 | W.PM.HP.N ---
Date of service: 10/08/22 Time of Service: 09:24 Assessment and Plan Assessment and plan (1) Kidney stone on left side: Status: Acute Assessment and plan: For cystoscopy, left retrograde pyelogram, left ureteroscopy and holmium laser lithotripsy of the left ureteral stone. If I am unable to access the stone today, we will place a ureteral stent and arrange for a staged procedure. History of Present Illness History of Present Illness Chief Complaint: Left ureteral stone Narrative: This is a 67-year-old gentleman who presented to the emergency room with renal colic. He was found to have a left distal ureteral stone. He has not been able to pass the stone so far. He has had intermittent pain which has been controlled with oral analgesics. He has not had any fever or chills. He does have a past history of kidney stones but we are unsure of any previous stone analysis. He has no history of gout or hyperparathyroidism. Review of Systems Narrative: No fevers or chills Allergic rhinitis. No vision change or dysphasia No diabetes or thyroid dysfunction Hx asthma. No hemoptysis No chest pain or palpitations No hepatitis, ulcers, jaundice Hx seizures. No strokes or peripheral neuropathy No bleeding disorders or anemia No gout PFSH All Active Problems Kidney stone on left side (Acute) Fatigue (Acute) Asthma (Chronic) Hyperlipidemia (Acute) Anemia (Chronic) Seizure (Acute) Dehydration (Acute) Acute kidney injury (nontraumatic) (Acute) Syncope (Chronic) Asthma (Chronic) Depression (Acute 07/30/14) Essential hypertension (Acute 11/22/15) Restless leg syndrome (Acute 07/30/14) Seasonal allergic rhinitis (Acute 11/22/15) Medical History Back injury tree fell Depression HTN (hypertension) Restless leg syndrome Surgical History Colonoscopy - IV Sedation (10/19/16) Family History Father , 76 Asthma Mother No problems noted. Sister No problems noted. Sister No problems noted. Sister No problems noted. Brother No problems noted. Brother No problems noted. Son No problems noted. Daughter No problems noted. Daughter No problems noted. Maternal Grandfather No problems noted. Paternal Grandfather No problems noted. Paternal Grandmother No problems noted. Maternal Grandmother No problems noted. Social History Smoking/Tobacco Use Status: Never Smokeless tobacco user: snuff Second Hand Exposure: Yes Smoking risk assessment performed?: Yes Alcohol Intake: former Drug use: Occasionally Substance use type: marijuana Details: quit drinking 35 yrs ago Caregiver/Support person: No Household members: significant other Housing: house Communication Needs: None current occupation: [employer]; Self-employed Pets and animals: No Sexually active: Yes Do you think of yourself as: straight/heterosexual Current gender identity: male What is your relationship status?: living with partner How often do you talk on the phone with friends or family?: three or more times per week How often do you get together with friends or relatives?: three or more times per week How often do you attend synagogue or denominational services?: decline to answer Do you belong to any clubs or organized social groups?: no Panel score (0-1 are the most socially isolated patients): 2 What type of physical activity do you participate in: other Details: Work Frequency: does not exercise Floridalma/Jehovah'S Witness: No preference Special floridalma needs: No Seatbelt use: always Helmet use: No Drive intox or ride w/intox driver/sales workers: No Do you feel safe at home: Yes Do you feel safe in your relationship?: Yes Meds Allergies and Home Medications Allergies Allergy/AdvReac Type Severity Reaction Status Date / Time No Known Allergies Allergy Verified 10/08/22 07:19 Home Medications Medication Instructions Recorded Confirmed Type rosuvastatin 10 mg tablet (Crestor) 10 mg PO DAILY #90 tabs 06/02/22 10/08/22 Rx losartan 50 mg tablet 50 mg PO DAILY #90 tabs 08/30/22 10/08/22 Rx ondansetron 8 mg disintegrating 8 mg PO Q8H PRN nausea and 09/23/22 10/08/22 Rx tablet vomiting #21 tabs oxycodone-acetaminophen 5 mg-325 1 tab PO Q4H PRN pain #21 tabs 09/23/22 10/08/22 Rx mg tablet (Percocet) ibuprofen 800 mg tablet 800 mg PO TID PRN pain #30 tabs 09/25/22 10/08/22 Rx tamsulosin 0.4 mg capsule (Flomax) 0.4 mg PO DAILY #14 caps 09/25/22 10/08/22 Rx Exam Const General: cooperative Neck Neck: supple Resp Effort & Inspection: normal respiratory effort Auscultation: clear to auscultation bilaterally Cardio Rate: regular rate Rhythm: regular rhythm GI Inspection: normal to inspection Palpation: soft and no masses Neuro General: patient alert, patient awake and patient oriented x3 Results Imaging Abdomen CT scan report/results: image reviewed Last Vital Signs Temp 36.5 C 10/08/22 07:08 Pulse 100 H 10/08/22 07:08 Resp 19 10/08/22 07:08 BP 110/75 10/08/22 07:08 Pulse Ox 96 10/08/22 07:08 Time Spent Time spent with Patient: <40 minutes Time was spent: other
[2022-10-08] MEDS: ceFAZolin 2 GM/50 ML BAG IVPB (10:14)
[2022-10-08] MEDS: Lidocaine 2% Jelly 6 ML SYR (10:28)
[2022-10-08] MEDS: Omnipaque 300 MG/ML 50 ML BTL (10:54)
--- NOTE | 2022-10-08 11:05 | DI.RAD_ITS ---
Exam(s) XR RETROGRADE IN OR EXAM: XR RETROGRADE IN OR CLINICAL HISTORY: LEFT KIDNEY STONE. TECHNIQUE: 2D digital imaging was performed. COMPARISON: No exams were available for comparison FINDINGS: Fluoroscopy provided during retrograde left urologic study and placement of left ureteral stent. See procedure report for details. Total fluoroscopy time 17 seconds IMPRESSION: Radiation exposure index/cumulative dose: kerrie Stoddard= 3.9654 mGy DATA REPOSITORY: RADIATION DOSE DELIVERED:
--- NOTE | 2022-10-08 11:08 | W.PM.DSUDISC ---
Date of service: 10/08/22 Time of Service: 11:08 Discharge Plan Disposition Condition: Stable Discharge Details Reason For Visit: ureteroscopy Attending Provider: Ayan Fonseca Primary Care Provider: Kishore Palmer Home Meds and New Rx's Prescriptions: No Action tamsulosin [Flomax] 0.4 mg capsule 0.4 mg PO DAILY Qty: 14 0RF ibuprofen 800 mg tablet 800 mg PO TID PRN (Reason: pain) Qty: 30 0RF rosuvastatin [Crestor] 10 mg tablet 10 mg PO DAILY Qty: 90 4RF losartan 50 mg tablet 50 mg PO DAILY Qty: 90 3RF ondansetron 8 mg tablet,disintegrating 8 mg PO Q8H PRN (Reason: nausea and vomiting) Qty: 21 0RF oxycodone-acetaminophen [Percocet] 5-325 mg tablet 1 tab PO Q4H PRN (Reason: pain) Qty: 21 0RF Discharge Instructions Additional Instructions: no need to strain urine followup @ 1 week for stent removal - tell my office that there is a string on his stent followup 6 to 8 weeks for renal US Activity:: Activity as Tolerated Shower/Bathe:: 24 hours Diet:: As Tolerated DS: Diagnosis Discharge Diagnosis (1) Kidney stone on left side: Status: Acute
--- NOTE | 2022-10-08 11:19 | W.PM.OP ---
Date of service: 10/08/22 Time of Service: 11:19 Operative Note Operative Note DATE OF PROCEDURE: 10/08/22 PRE-OP DIAGNOSIS: Left ureteral stone POST-OP DIAGNOSIS: same PROCEDURE: cystoscopy, left retrograde pyelogram, left ureteroscopy with holmium laser lithotripsy, extraction of stone fragments, insert left ureteral stent SURGEON: Ayan Fonseca ANESTHESIA TYPE: Local By Surgeon and General LMA/ETT Refer to Anesthesia Record ESTIMATED BLOOD LOSS: 20 PATHOLOGY: other (stones for chemical analysis) COMPLICATIONS: None Patient was transported to: PACU Patient's condition: stable Implants: 6 [place] by 22 to 30 cm left ureteral stent Indications: This is a 67-year-old gentleman who has a past history significant for kidney stones. He recently presented to the emergency department with renal colic on the left side. He was found to have a large left distal ureteral stone. He has not passed the stone in spite of conservative management. He presents now for stone manipulation. Findings: left distal ureteral stone Procedure Description: The patient was brought to the operating room on 10/08/2022. He was given a dose of preoperative IV antibiotics. After successful induction of general anesthesia, he was placed in the dorsal lithotomy position. His genitalia was prepped and draped. 2% Xylocaine jelly was instilled into the urethra to act as a local anesthetic. A 22 [place] rigid cystoscope was passed through the urethra into the bladder. The urethra and bladder were inspected with a 30 degree lens. The pendulous, bulbar and membranous urethra appeared normal with no strictures. The prostatic urethra showed some mild lateral lobe enlargement. The bladder neck was entered and the bladder mucosa was inspected. Both ureteral orifices were identified. No blood was seen coming from either side. No papillary or nodular lesions were seen in the bladder. No stones were found in the bladder lumen. I then cannulated the left ureteral orifice with a 5 [place] access catheter. A retrograde pyelogram was obtained by injecting Omnipaque through the access catheter under fluoroscopic guidance. A radiopaque filling defect was identified in the left distal ureter. I then passed a Glidewire through the lumen of the access catheter and was able to advance the wire above the level of the stone. I then removed the cystoscope and access catheter leaving the wire in place. I passed a semirigid ureteroscope down through the urethra into the bladder. I would maneuvered the scope into the left ureteral orifice and advanced the scope until the stone was visualized. I treated the stone with a 365 ?m holmium laser fiber. We used a power setting of 0.5 and a rate of 10. The stone fragmented quite well. I was able to grasp multiple fragments in a [employer] stone basket and extract the fragments. Each fragment was sent to pathology for permanent section. At the completion of the procedure, I saw no additional large stone fragments. Because of the expected postoperative edema, we elected to place a ureteral stent. We chose a 6 [place] variable length stent and advanced it over the wire. The proximal end of the stent was curled in the renal pelvis and the distal end was curled within the bladder. The positioning of the stent was conformed both cystoscopically and fluoroscopically. The string attached to the stent was brought through the urethra and taped to the dorsum of the penis. We will plan on removing the stent in about a week. The patient tolerated this procedure well with no complications.
[2022-10-08] MEDS: ePHEDrine 25 MG/5 ML Syringe IVP (11:41)
[2022-10-08] MEDS: Phenazopyridine 200 MG TAB PO (12:11)
--- NOTE | 2022-10-08 12:22 | W.ANESPOSTOP ---
Postoperative Evaluation Date, Time and Location Date Performed: 10/08/22 Time Performed: 12:22 Patient Location: Day Surgery Unit Vital Signs Most Recent Imported Vital Signs: Most Recent Vital Signs Temp Pulse Resp BP Pulse Ox 36.2 C L 76 18 125/82 95 10/08/22 11:58 10/08/22 11:58 10/08/22 11:58 10/08/22 11:58 10/08/22 11:58 Pain Score Most Recent Pain Score: Most Recent Pain Score Pain Level 0 10/08/22 11:58 Assessment Mental Status: Awake (Alert & Oriented to Patient Baseline) Airway and Respiratory Function: Patent airway with normal (patient baseline) respiratory exam Cardiovascular Function: Hemodynamically Stable Hydration Status: Adequately Hydrated Nausea & Vomiting: No Nausea or Vomiting Pain: Pt. Denies Any Pain Peripheral Nerve Block: Patient did not receive a nerve block
[2022-10-15 15:35] LABS: Source: Left Kidney
== END 2022-10-08 12:50 | disposition home or self-care (01) ==
PROVIDERS: PCP Family Medicine; Visit Provider Urology
PROC: (CPT 52356; principal; 2022-10-08 09:00)
DX: N20.1 Calculus of ureter (principal); I10 Essential (primary) hypertension; J45.909 Unspecified asthma, uncomplicated
CPT/HCPCS: 52356; 74420; 82365; J0690; J1100; J1885; J2371; J2405; J2704; J3010; Q9967

== ENCOUNTER → 2022-10-15 10:36 | Outpatient (BNVA) | payer MEDICARE, SELFPAY | PROVIDERS: PCP Family Medicine; Referring Provider Family Medicine; Visit Provider Urology | DX: Z48.816 Encounter for surgical aftercare following surgery on the genitourinary system (principal) ==

== ENCOUNTER → 2022-11-21 01:26 | Outpatient (CLI) | payer MEDICARE, SELFPAY ==
--- NOTE | 2022-11-21 07:30 | DI.US_ITS ---
Exam(s) US RENAL EXAM: US RENAL CLINICAL HISTORY: ? hydronephrosis after ureteroscopy,lt ureteral stone,n20.1 TECHNIQUE: Ultrasound of both kidneys performed using standard protocol. COMPARISON: CT CT ABDOMEN PELVIS WO from 09/23/2022 FINDINGS: RIGHT KIDNEY: Measures 10.8 cm in length. No cysts evident. Normal cortical thickness and corticomedullary differen tiation .No solid masses No intrarenal calculi nor hydronephrosis. LEFT KIDNEY: Measures 11.8 cm in length. No cysts evident. Normal cortical thickness and corticomedullary differe ntiaion. No solids masses. No intrarenal calculi nor hydonephrosis. URINARY BLADDER: Prevoid volume is 21 cc Postvoid volume is 0 cc No radiopaque calculi seen in the urinary bladder. No evidence of bladder mass nor diverticuli. Ureterovesical jets: Both not identified. IMPRESSION: 1. No significant ultrasound findings in the kidneys. 2. Left-sided hydronephrosis seen on the CT scan of 12/24/2022 is no longer evident. This hydroneph rosis was caused by an 8 millimeter calculus in the distal left ureter. DATA REPOSITORY:
== END ==
PROVIDERS: PCP Family Medicine; Visit Provider Urology
DX: N20.1 Calculus of ureter (principal)
CPT/HCPCS: 76770

== ENCOUNTER → 2022-11-27 13:39 | Outpatient (BNVA) | payer MEDICARE, SELFPAY | PROVIDERS: PCP Family Medicine; Referring Provider Family Medicine; Visit Provider Nurse Practitioner Gerontology | DX: N20.0 Calculus of kidney (principal) | CPT/HCPCS: 99213 ==

== ENCOUNTER 2024-01-29 02:45 | Outpatient (CLI) | payer MEDICARE, SELFPAY ==
[2024-01-29 12:23] LABS: Anion Gap 12.1 mmol/L (3-11); BUN 17 mg/dL (7-18); CO2 26.9 mmol/L (21.0-32.0); CREATININE 1.4 mg/dL (0.70-1.30); Calcium 9.3 mg/dL (8.5-10.1); Calculated LDL 122 mg/dL (<100); Chloride 105 mmol/L (98-107); Cholesterol 190 mg/dL (<200); Estimated GFR 55.09 (mL/min/1.73m2); Glucose 105 mg/dL (74-106); HDL Cholesterol 42 mg/dL (40-60); Sodium 144 mmol/L (136-145); Triglyceride 134 mg/dL (<150)
[2024-01-29 12:26] LABS: Hemoglobin A1C 5.7 % (<5.7)
[2024-01-29 19:15] LABS: Hepatitis C Ab w Rflx HCV PCR Negative (Negative)
[2024-02-02 12:34] LABS: Testosterone, Total 456 ng/dL (240-950)
== END 2024-01-29 02:46 | disposition home or self-care (01) ==
LOC: LOS 02:45
PROVIDERS: PCP Family Medicine; Visit Provider Family Medicine
DX: E11.9 Type 2 diabetes mellitus without complications (principal); Z11.59 Encounter for screening for other viral diseases; E78.5 Hyperlipidemia, unspecified; Z00.00 Encounter for general adult medical examination without abnormal findings; E87.1 Hypo-osmolality and hyponatremia
CPT/HCPCS: 36415; 80048; 80061; 84402; 84403; 86803; 83036

== ENCOUNTER 2025-01-05 09:56 | Outpatient (CLI) | payer MEDICARE, SELFPAY ==
[2025-01-05 14:23] LABS: Estimated GFR 73.12 (mL/min/1.73m2); Potassium 4.0 mmol/L (3.5-5.1)
[2025-01-12 14:59] LABS: Testosterone, Free 9.31 ng/dL (3.47-13.0)
== END 2025-01-05 09:57 | disposition home or self-care (01) ==
LOC: LOS 09:56
PROVIDERS: PCP Family Medicine; Visit Provider Family Medicine
DX: I10 Essential (primary) hypertension (principal); Z00.00 Encounter for general adult medical examination without abnormal findings
CPT/HCPCS: 36415; 84402; 84403; 82565; 84132